=== PATIENT | male | born 1965 | race Caucasian/White ===

== ENCOUNTER 2017-02-24 09:47 | Outpatient (CLI) | payer OTHER ==
[~2017-02-24] VITALS: Ht 180.3 cm; Wt 79.4 kg
[2017-02-24] MEDS ORDERED: NS 1,000 ML IV ONE (10:00)
[2017-02-24] MEDS ORDERED: PROPOFOL 200 MG/20 ML VIAL As Ordered ONE (11:58)
[2017-02-24] MEDS ORDERED: LIDOCAINE 2% INJ 100 MG/5 ML SDV (FOR ANES.) As Ordered ONE (11:58)
--- NOTE | 2017-02-24 12:18 | ROOR ---
Patient Name: Dejan Carrasquillo Procedure Date: 02/24/2017 11:48 AM Date of : 1965 Age: 52 Room: [facility] Gender: Male Note Status: Finalized Procedure: Colonoscopy Indications: Screening for colorectal malignant neoplasm Providers: Guilherme Park MD Referring MD: YAIR HARRIS MD Requesting Provider: Medicines: Monitored Anesthesia Care Complications: No immediate complications. Procedure: Pre-Anesthesia Assessment: - Prior to the procedure, a History and Physical was performed, and patient medications and allergies were reviewed. The patient is competent. The risks and benefits of the procedure and the sedation options and risks were discussed with the patient. All questions were answered and informed consent was obtained. Patient identification and proposed procedure were verified by the physician, the nurse and the mechanical supervisor in the procedure room. Mental Status Examination: alert and oriented. Airway Examination: normal oropharyngeal airway and neck mobility. Respiratory Examination: clear to auscultation. CV Examination: normal. Prophylactic Antibiotics: The patient does not require prophylactic antibiotics. Prior Anticoagulants: The patient has taken no previous anticoagulant or antiplatelet agents. ASA Grade Assessment: I - A normal, healthy patient. After reviewing the risks and benefits, the patient was deemed in satisfactory condition to undergo the procedure. The anesthesia plan was to use monitored anesthesia care (MAC). Immediately prior to administration of medications, the patient was re-assessed for adequacy to receive sedatives. The heart rate, respiratory rate, oxygen saturations, blood pressure, adequacy of pulmonary ventilation, and response to care were monitored throughout the procedure. The physical status of the patient was re-assessed after the procedure. The Colonoscope was introduced through the anus and advanced to the terminal ileum, with identification of the appendiceal orifice and IC valve. The colonoscopy was performed without difficulty. The patient tolerated the procedure well. The quality of the bowel preparation was good. The terminal ileum, ileocecal valve, appendiceal orifice, and rectum were photographed. Scope insertion time was 3 minutes. Scope withdrawal time was 10 minutes. The total duration of the procedure was 13 minutes. Findings: The perianal and digital rectal examinations were normal. The terminal ileum appeared normal. Two hyperplastic polyps were found in the sigmoid colon. The polyps were diminutive in size. These polyps were removed with a cold biopsy forceps. Resection and retrieval were complete. Verification of patient identification for the specimen was done by the physician and nurse using the patient's name, date and medical record number. Estimated blood loss was minimal. A few small-mouthed diverticula were found in the sigmoid colon. There was no evidence of diverticular bleeding. Non-bleeding external and internal hemorrhoids were found during retroflexion. The hemorrhoids were medium-sized. Impression: - The examined portion of the ileum was normal. - Two diminutive polyps in the sigmoid colon, removed with a cold biopsy forceps. Resected and retrieved. - Mild diverticulosis in the sigmoid colon. There was no evidence of diverticular bleeding. - Non-bleeding external and internal hemorrhoids. Recommendation: - Patient has a contact number available for emergencies. The signs and symptoms of potential delayed complications were discussed with the patient. Return to normal activities tomorrow. Written discharge instructions were provided to the patient. - High fiber diet. - Continue present medications. - Await pathology results. - Repeat colonoscopy in 10 years for screening purposes. - Preparation H ointment: Apply externally daily for 5 days. - Return to GI clinic in 10 years. - Return to primary care physician. Guilherme Park MD Guilherme Park MD 02/24/2017 12:18:10 PM This report has been signed electronically. Number of Addenda: 0 Note Initiated On: 02/24/2017 11:48 AM Estimated Blood Loss: Estimated blood loss was minimal.
[2017-02-24 12:30] VITALS: BP 146/77
== END 2017-02-24 12:46 | disposition home or self-care (01) ==
LOC: M OPP 09:47
PROVIDERS: ATTEND Internal Medicine Gastroenterology
DX: Z12.11 Encounter for screening for malignant neoplasm of colon (principal); D12.5 Benign neoplasm of sigmoid colon; K57.30 Diverticulosis of large intestine without perforation or abscess without bleeding; K64.8 Other hemorrhoids; K64.4 Residual hemorrhoidal skin tags; I45.4 Nonspecific intraventricular block; Z80.3 Family history of malignant neoplasm of breast

== ENCOUNTER 2020-07-24 20:31 | Emergency (ER) | payer OTHER ==
[~2020-07-24] VITALS: Ht 180.3 cm; Wt 79.5 kg
--- NOTE | 2020-07-24 21:14 | REPVR ---
PROCEDURE INFORMATION: Exam: XR Left Ribs with PA Chest, 3 Views Exam date and time: 07/24/2020 9:04 PM Age: 55 years old Clinical indication: Chest wall pain; Left; Additional info: Injury TECHNIQUE: Imaging protocol: XR Left ribs 3 views with PA chest. COMPARISON: No relevant prior studies available. FINDINGS: Lungs: Unremarkable. No consolidation. Pleural spaces: Minimal blunting left lateral costophrenic angle.. No pneumothorax. Heart/Mediastinum: There is loss definition of the left heart border. Bones/joints: No definite rib fracture. IMPRESSION: 1. No rib fracture seen. 2. Loss of definition of the left heart border. Differential diagnostic considerations include infiltrate/scarring in the lingula or prominent epicardial pad 3. Minimal blunting left lateral costophrenic angle suggesting small amount of pleural fluid or thickening thickening Electronically signed by: Mamta Girard On 07/24/2020 21:14:46 PM
--- NOTE | 2020-07-24 21:16 | REPVR ---
PROCEDURE INFORMATION: Exam: XR Left Wrist Exam date and time: 07/24/2020 9:04 PM Age: 55 years old Clinical indication: Pain; Wrist; Left; Additional info: Injury TECHNIQUE: Imaging protocol: XR Left wrist. Views: 3 or more views. COMPARISON: No relevant prior studies available. FINDINGS: Bones/joints: There is a fracture of ulnar styloid. There is a comminuted fracture of the distal radial metaphysis. The above described radial fracture appears to extend to the articular surface of the distal radius. There is dorsal angulation of the distal fracture fragment. Subchondral sclerosis and marginal osteophytes border the 1st carpometacarpal joint. Soft tissues: Soft tissue swelling surrounds the wrist. IMPRESSION: Colles fracture of the left wrist Electronically signed by: Mamta Girard On 07/24/2020 21:16:23 PM
--- OUTSIDE RECORDS SUMMARY | 2020-07-24 22:26 | CCD ---
Author Author [facility] Organization [facility] Address Unknown Phone Unavailable Care Team Providers Care Toy Assembler Name Role Phone Jumalon, M Tala DEVELOPING MACHINE TENDER Unavailable Unavailable Jumalon, M Tala DEVELOPING MACHINE TENDER Unavailable Unavailable Jumalon, M Tala DEVELOPING MACHINE TENDER Unavailable Unavailable Jumalon, M Tala DEVELOPING MACHINE TENDER Unavailable Unavailable Jumalon, M Tala DEVELOPING MACHINE TENDER Unavailable Unavailable Jumalon, M Tala DEVELOPING MACHINE TENDER Unavailable Unavailable Jumalon, M Tala DEVELOPING MACHINE TENDER Unavailable Unavailable Jumalon, M Tala DEVELOPING MACHINE TENDER Unavailable Unavailable Jumalon, M Tala DEVELOPING MACHINE TENDER Unavailable Unavailable Jumalon, M Tala DEVELOPING MACHINE TENDER Unavailable Unavailable Jumalon, M Tala DEVELOPING MACHINE TENDER Unavailable Unavailable Jumalon, M Tala DEVELOPING MACHINE TENDER Unavailable Unavailable Jumalon, M Tala DEVELOPING MACHINE TENDER Unavailable Unavailable Jumalon, M Tala DEVELOPING MACHINE TENDER Unavailable Unavailable Jumalon, M Tala DEVELOPING MACHINE TENDER Unavailable Unavailable Jumalon, M Tala DEVELOPING MACHINE TENDER Unavailable Unavailable Jumalon, M Tala DEVELOPING MACHINE TENDER Unavailable Unavailable Jumalon, M Tala DEVELOPING MACHINE TENDER Unavailable Unavailable Jumalon, M Tala DEVELOPING MACHINE TENDER Unavailable Unavailable Jumalon, M Tala DEVELOPING MACHINE TENDER Unavailable Unavailable Jumalon, M Tala DEVELOPING MACHINE TENDER Unavailable Unavailable Jumalon, M Tala DEVELOPING MACHINE TENDER Unavailable Unavailable Jumalon, M Tala DEVELOPING MACHINE TENDER Unavailable Unavailable Jumalon, M Tala DEVELOPING MACHINE TENDER Unavailable Unavailable Jumalon, M Tala DEVELOPING MACHINE TENDER Unavailable Unavailable Jumalon, M Tala DEVELOPING MACHINE TENDER Unavailable Unavailable Jumalon, M Tala DEVELOPING MACHINE TENDER Unavailable Unavailable Jumalon, M Tala DEVELOPING MACHINE TENDER Unavailable Unavailable Ramiro HARRIS MD Unavailable Unavailable Ramiro HARRIS MD Unavailable Unavailable Ramiro HARRIS MD Unavailable Unavailable Ramiro HARRIS MD Unavailable Unavailable Ramiro HARRIS MD Unavailable Unavailable Ramiro HARRIS MD Unavailable Unavailable Ramiro HARRIS MD Unavailable Unavailable Ramiro HARRIS MD Unavailable Unavailable Ramiro HARRIS MD Unavailable Unavailable Ramiro HARRIS MD Unavailable Unavailable Ramiro HARRIS MD Unavailable Unavailable Ramiro HARRIS MD Unavailable Unavailable Ramiro HARRIS MD Unavailable Unavailable Ramiro HARRIS MD Unavailable Unavailable Ramiro HARRIS MD Unavailable Unavailable Ramiro HARRIS MD Unavailable Unavailable Ramiro HARRIS MD Unavailable Unavailable Ramiro HARRIS MD Unavailable Unavailable Ramiro HARRIS MD Unavailable Unavailable Ramiro HARRIS MD Unavailable Unavailable Ramiro HARRIS MD Unavailable Unavailable Ramiro HARRIS MD Unavailable Unavailable Ramiro HARRIS MD Unavailable Unavailable Ramiro HARRIS MD Unavailable Unavailable Ramiro HARRIS MD Unavailable Unavailable Ramiro HARRIS MD Unavailable Unavailable Ramiro HARRIS MD Unavailable Unavailable Ramiro HARRIS MD Unavailable Unavailable Ramiro HARRIS MD Unavailable Unavailable Ramiro HARRIS MD Unavailable Unavailable Ramiro HARRIS MD Unavailable Unavailable Ramiro HARRIS MD Unavailable Unavailable Ramiro HARRIS MD Unavailable Unavailable Ramiro HARRIS MD Unavailable Unavailable Ramiro HARRIS MD Unavailable Unavailable Ramiro HARRIS MD Unavailable Unavailable Ramiro HARRIS MD Unavailable Unavailable Ramiro HARRIS MD Unavailable Unavailable Ramiro HARRIS MD Unavailable Unavailable Ramiro HARRIS MD Unavailable Unavailable Ramiro HARRIS MD Unavailable Unavailable Ramiro HARRIS MD Unavailable Unavailable Ramiro HARRIS MD Unavailable Unavailable Ramiro HARRIS MD Unavailable Unavailable Ramiro HARRIS MD Unavailable Unavailable Ramiro HARRIS MD Unavailable Unavailable Ramiro HARRIS MD Unavailable Unavailable Ramiro HARRIS MD Unavailable Unavailable Ramiro HARRIS MD Unavailable Unavailable Ramiro HARRIS MD Unavailable Unavailable Ramiro HARRIS MD Unavailable Unavailable Ramiro HARRIS MD Unavailable Unavailable Ramiro HARRIS MD Unavailable Unavailable Ramiro HARRIS MD Unavailable Unavailable Ramiro HARRIS MD Unavailable Unavailable Ramiro HARRIS MD Unavailable Unavailable Ramiro HARRIS MD Unavailable Unavailable Ramiro HARRIS MD Unavailable Unavailable Ramiro HARRIS MD Unavailable Unavailable Ramiro HARRIS MD Unavailable Unavailable Ramiro HARRIS MD Unavailable Unavailable Ramiro HARRIS MD Unavailable Unavailable Ramiro HARRIS MD Unavailable Unavailable Ramiro HARRIS MD Unavailable Unavailable Ramiro HARRIS MD Unavailable Unavailable Ramiro HARRIS MD Unavailable Unavailable Ramiro HARRIS MD Unavailable Unavailable Ramiro HARRIS MD Unavailable Unavailable Ramiro HARRIS MD Unavailable Unavailable Ramiro HARRIS MD Unavailable Unavailable Ramiro HARRIS MD Unavailable Unavailable Ramiro HARRIS MD Unavailable Unavailable Ramiro HARRIS MD Unavailable Unavailable Ramiro HARRIS MD Unavailable Unavailable Ramiro HARRIS MD Unavailable Unavailable KIMBERLYRamiro MD Unavailable Unavailable Nash, D Deep PA Unavailable Unavailable Nash, D Deep PA Unavailable Unavailable Nash, D Deep PA Unavailable Unavailable Nash, D Deep PA Unavailable Unavailable Nash, D Deep PA Unavailable Unavailable Nash, D Deep PA Unavailable Unavailable Nash, D Deep PA Unavailable Unavailable Nash, D Deep PA Unavailable Unavailable Nash, D Deep PA Unavailable Unavailable Nash, D Deep PA Unavailable Unavailable Nash, D Deep PA Unavailable Unavailable Nash, D Deep PA Unavailable Unavailable Nash, D Deep PA Unavailable Unavailable Nash, D Deep PA Unavailable Unavailable Nash, D Deep PA Unavailable Unavailable Nash, D Deep PA Unavailable Unavailable Nash, D Deep PA Unavailable Unavailable Nash, D Deep PA Unavailable Unavailable Nash, D Deep PA Unavailable Unavailable Ansh, D Deep PA Unavailable Unavailable Nash, D Deep PA Unavailable Unavailable Nash, D Deep PA Unavailable Unavailable Nash, D Deep PA Unavailable Unavailable Nash, D Deep PA Unavailable Unavailable Nash, D Deep PA Unavailable Unavailable Nash, D Deep PA Unavailable Unavailable Nash, D Deep PA Unavailable Unavailable Nash, D Deep PA Unavailable Unavailable Nash, D Deep PA Unavailable Unavailable Nash, D Deep PA Unavailable Unavailable Nash, D Deep PA Unavailable Unavailable Nash, D Deep PA Unavailable Unavailable Nash, D Deep PA Unavailable Unavailable Nash, D Deep PA Unavailable Unavailable Nash, D Deep PA Unavailable Unavailable Nash, D Deep PA Unavailable Unavailable Nash, D Deep PA Unavailable Unavailable Nash, D Deep PA Unavailable Unavailable Nash, D Deep PA Unavailable Unavailable Nash, D Depe PA Unavailable Unavailable Nash, D Deep PA Unavailable Unavailable Nash, D Deep PA Unavailable Unavailable Nash, D Deep PA Unavailable Unavailable Nash, D Deep PA Unavailable Unavailable Nash, D Deep PA Unavailable Unavailable Nash, D Deep PA Unavailable Unavailable Nash, D Deep PA Unavailable Unavailable Nash, D Deep PA Unavailable Unavailable Nash, D Deep PA Unavailable Unavailable Nash, D Deep PA Unavailable Unavailable Nash, D Deep PA Unavailable Unavailable Nash, D Deep PA Unavailable Unavailable Nash, D Deep PA Unavailable Unavailable Nash, D Deep PA Unavailable Unavailable Nash, D Deep PA Unavailable Unavailable Nash, D Deep PA Unavailable Unavailable Nash, D Deep PA Unavailable Unavailable Nash, D Deep PA Unavailable Unavailable Nash, D Deep PA Unavailable Unavailable Nash, D Deep PA Unavailable Unavailable Nash, D Deep PA Unavailable Unavailable Nash, D Deep PA Unavailable Unavailable Nash, D Deep PA Unavailable Unavailable RAPHAEL, E KATHY WHEELER Unavailable Unavailable RAPHAEL, E KATHY WHEELER Unavailable Unavailable RAPHAEL, E KATHY WHEELER Unavailable Unavailable RAPHAEL, Jennifer CHAVEZ MD Unavailable Unavailable RAPHAEL, Jennifer CHAVEZ MD Unavailable Unavailable RAPHAEL, Jennifer CHAVEZ MD Unavailable Unavailable RAPHAEL, Jennifer CHAVEZ MD Unavailable Unavailable RAPHAEL, Jennifer CHAVEZ MD Unavailable Unavailable RAPHAEL, Jennifer CHAVEZ MD Unavailable Unavailable RAPHAEL, Jennifer CHAVEZ MD Unavailable Unavailable RAPHAEL, Jennifer CHAVEZ MD Unavailable Unavailable RAPHAEL, Jennifer CHAVEZ MD Unavailable Unavailable RAPHAEL, Jennifer CHAVEZ MD Unavailable Unavailable RAPHAEL, Jennifer CHAVEZ MD Unavailable Unavailable RAPHAEL, Jennifer CHAVEZ MD Unavailable Unavailable RAPHAELJennifer GREER MD Unavailable Unavailable RAPHAELJennifer GREER MD Unavailable Unavailable Jennifer LIM MD Unavailable Unavailable RAPHAEL, Jennifer CHAVEZ MD Unavailable Unavailable RAPHAEL, Jennifer CHAVEZ MD Unavailable Unavailable RAPHAEL, Jennifer CHAVEZ MD Unavailable Unavailable RAPHAELJennifer GREER MD Unavailable Unavailable Jennifer LIM MD Unavailable Unavailable Jennifer LIM MD Unavailable Unavailable RAPHAELJennifer GREER MD Unavailable Unavailable RAPHAELJennifer GREER MD Unavailable Unavailable RAPHAELJennifer GREER MD Unavailable Unavailable RAPHAELJennifer GREER MD Unavailable Unavailable RAPHAEL, Jennifer CHAVEZ MD Unavailable Unavailable Jennifer LIM MD Unavailable Unavailable RAPHAEL, Jennifer CHAVEZ MD Unavailable Unavailable RAPHAEL, Jennifer CHAVEZ MD Unavailable Unavailable RAPHAEL, Jennifer CHAVEZ MD Unavailable Unavailable RAPHAEL, Jennifer CHAVEZ MD Unavailable Unavailable RAPHAEL, Jennifer CHAVEZ MD Unavailable Unavailable RAPHAEL, Jennifer CHAVEZ MD Unavailable Unavailable RAPHAEL, Jennifer CHAVEZ MD Unavailable Unavailable RAPHAEL, E KATHY WHEELER Unavailable Unavailable RAPHAEL, Jennifer CHAVEZ MD Unavailable Unavailable RAPHAEL, Jennifer CHAVEZ MD Unavailable Unavailable RAPHAEL, Jennifer CHAVEZ MD Unavailable Unavailable RAPHAEL, Jennifer CHAVEZ MD Unavailable Unavailable RAPHAEL, Jennifer CHAVEZ MD Unavailable Unavailable RAPHAEL, E KATHY WHEELER Unavailable Unavailable RAPHAEL, E KATHY WHEELER Unavailable Unavailable RAPHAEL, E KATHY WHEELER Unavailable Unavailable RAPHAEL, Jennifer CHAVEZ MD Unavailable Unavailable RAPHAEL, Jennifer CHAVEZ MD Unavailable Unavailable RAPHAEL, E KATHY WHEELER Unavailable Unavailable RAPHAEL, E KATHY WHEELER Unavailable Unavailable RAPHAEL, E KATHY WHEELER Unavailable Unavailable RAPHAEL, E KATHY WHEELER Unavailable Unavailable RAPHAEL, E KATHY WHEELER Unavailable Unavailable RAPHAEL, Jennifer CHAVEZ MD Unavailable Unavailable RAPHAEL, E KATHY WHEELER Unavailable Unavailable RAPHAEL, Jennifer CHAVEZ MD Unavailable Unavailable RAPHAEL, Jennifer CHAVEZ MD Unavailable Unavailable RAPHAEL, Jennifer CHAVEZ MD Unavailable Unavailable RAPHAEL, Jennifer CHAVEZ MD Unavailable Unavailable RAPHAEL, Jennifer CHAVEZ MD Unavailable Unavailable RAPHAEL, Jennifer CHAVEZ MD Unavailable Unavailable RAPHAEL, Jennifer CHAVEZ MD Unavailable Unavailable RAPHAEL, Jennifer CHAVEZ MD Unavailable Unavailable RAPHAEL, Jennifer CHAVEZ MD Unavailable Unavailable RAPHAEL, Jennifer CHAVEZ MD Unavailable Unavailable RAPHAEL, Jennifer CHAVEZ MD Unavailable Unavailable RAPHAEL, Jennifer CHAVEZ MD Unavailable Unavailable RAPHAEL, Jennifer CHAVEZ MD Unavailable Unavailable RAPHAEL, Jennifer CHAVEZ MD Unavailable Unavailable RAPHAEL, Jennifer CHAVEZ MD Unavailable Unavailable RAPHAEL, Jennifer CHAVEZ MD Unavailable Unavailable RAPHAEL, Jennifer CHAVEZ MD Unavailable Unavailable RAPHAEL, Jennifer CHAVEZ MD Unavailable Unavailable RAPHAEL, Jennifer CHAVEZ MD Unavailable Unavailable RAPHAEL, Jennifer CHAVEZ MD Unavailable Unavailable RAPHAEL, Jennifer CHAVEZ MD Unavailable Unavailable RAPHAEL, Jennifer CHAVEZ MD Unavailable Unavailable RAPHAEL, Jennifer CHAVEZ MD Unavailable Unavailable RAPHAEL, Jennifer CHAVEZ MD Unavailable Unavailable RAPHAEL, Jennifer CHAVEZ MD Unavailable Unavailable RAPHAEL, Jennifer CHAVEZ MD Unavailable Unavailable RAPHAEL, Jennifer CHAVEZ MD Unavailable Unavailable RAPHAEL, Jennifer CHAVEZ MD Unavailable Unavailable RAPHAEL, Jennifer CHAVEZ MD Unavailable Unavailable RAPHAEL, Jennifer CHAVEZ MD Unavailable Unavailable RAPHAEL, Jennifer CHAVEZ MD Unavailable Unavailable Jennifer LIM MD Unavailable Unavailable Jennifer LIM MD Unavailable Unavailable Jennifer LIM MD Unavailable Unavailable Jennifer LIM MD Unavailable Unavailable Jennifer LIM MD Unavailable Unavailable Jennifer LIM MD Unavailable Unavailable Jennifer LIM MD Unavailable Unavailable Jennifer LIM MD Unavailable Unavailable Jennifer LIM MD Unavailable Unavailable BolAmy morales MD Unavailable Unavailable BolAmy morales MD Unavailable Unavailable BolmAy morales MD Unavailable Unavailable BolAmy morales MD Unavailable Unavailable BolAmy morales MD Unavailable Unavailable BolAmy morales MD Unavailable Unavailable BolAmy morales MD Unavailable Unavailable BolAmy morales MD Unavailable Unavailable BolAmy morales MD Unavailable Unavailable BolAmy morales MD Unavailable Unavailable BolAmy morales MD Unavailable Unavailable BolAmy morales MD Unavailable Unavailable BolAmy morales MD Unavailable Unavailable BolAmy morales MD Unavailable Unavailable BolAmy morales MD Unavailable Unavailable BolAmy morales MD Unavailable Unavailable BolAmy morales MD Unavailable Unavailable BolAmy morales MD Unavailable Unavailable BolAmy morales MD Unavailable Unavailable BolAmy morales MD Unavailable Unavailable BolAmy morales MD Unavailable Unavailable BolAmy morales MD Unavailable Unavailable BolAmy morales MD Unavailable Unavailable BolAmy morales MD Unavailable Unavailable BolAmy morales MD Unavailable Unavailable BolAmy morales MD Unavailable Unavailable BolAmy morales MD Unavailable Unavailable BolAmy morales MD Unavailable Unavailable BolAmy morales MD Unavailable Unavailable BolAmy morales MD Unavailable Unavailable BolAmy morales MD Unavailable Unavailable BolAmy morales MD Unavailable Unavailable BolAmy morales MD Unavailable Unavailable BolAmy morales MD Unavailable Unavailable BolAmy morales MD Unavailable Unavailable BolAmy morales MD Unavailable Unavailable BolAmy morales MD Unavailable Unavailable BolAmy morales MD Unavailable Unavailable BolAmy morales MD Unavailable Unavailable BolAmy morales MD Unavailable Unavailable Bolla, S Ajay MD Unavailable Unavailable Bolla, S Ajay MD Unavailable Unavailable Bolla, S Ajay MD Unavailable Unavailable Bolla, S Ajay MD Unavailable Unavailable Bolla, S Ajay MD Unavailable Unavailable Bolla, S Ajay MD Unavailable Unavailable Bolla, S Ajay MD Unavailable Unavailable Bolla, S Ajay MD Unavailable Unavailable Nash, D Deep PA Unavailable Unavailable Nash, D Deep PA Unavailable Unavailable Nash, D Deep PA Unavailable Unavailable Nash, D Deep PA Unavailable Unavailable Nash, D Deep PA Unavailable Unavailable Nash, D Deep PA Unavailable Unavailable Nash, D Deep PA Unavailable Unavailable Nash, D Deep PA Unavailable Unavailable Nash, D Deep PA Unavailable Unavailable Nash, D Deep PA Unavailable Unavailable Nash, D Deep PA Unavailable Unavailable Nash, D Deep PA Unavailable Unavailable Nash, D Deep PA Unavailable Unavailable Nash, D Deep PA Unavailable Unavailable Nash, D Deep PA Unavailable Unavailable Nash, D Deep PA Unavailable Unavailable Nash, D Deep PA Unavailable Unavailable Nash, D Deep PA Unavailable Unavailable Nash, D Deep PA Unavailable Unavailable Nash, D Deep PA Unavailable Unavailable Nash, D Deep PA Unavailable Unavailable Nash, D Deep PA Unavailable Unavailable Nash, D Deep PA Unavailable Unavailable Nash, D Deep PA Unavailable Unavailable Nash, D Deep PA Unavailable Unavailable Nash, D Deep PA Unavailable Unavailable Nash, D Deep PA Unavailable Unavailable Nash, D Deep PA Unavailable Unavailable Nash, D Deep PA Unavailable Unavailable Nash, D Deep PA Unavailable Unavailable Nash, D Deep PA Unavailable Unavailable Nash, D Deep PA Unavailable Unavailable Nash, D Deep PA Unavailable Unavailable Nash, D Deep PA Unavailable Unavailable Nash, D Deep PA Unavailable Unavailable Nash, D Deep PA Unavailable Unavailable Nash, D Deep PA Unavailable Unavailable Nsah, D Deep PA Unavailable Unavailable Nash, D Deep PA Unavailable Unavailable Nash, D Deep PA Unavailable Unavailable Nash, D Deep PA Unavailable Unavailable Nash, D Deep PA Unavailable Unavailable Nash, D Deep PA Unavailable Unavailable Nash, D Deep PA Unavailable Unavailable Nash, D Deep PA Unavailable Unavailable Nash, D Deep PA Unavailable Unavailable Nash, D Deep PA Unavailable Unavailable Nash, D Deep PA Unavailable Unavailable Nash, D Deep PA Unavailable Unavailable Nash, D Deep PA Unavailable Unavailable Nash, D Deep PA Unavailable Unavailable Nash, D Deep PA Unavailable Unavailable Nash, D Deep PA Unavailable Unavailable Nash, D Deep PA Unavailable Unavailable Nash, D Deep PA Unavailable Unavailable Nash, D Deep PA Unavailable Unavailable Nash, D Deep PA Unavailable Unavailable Nash, D Deep PA Unavailable Unavailable Nash, D Deep PA Unavailable Unavailable Nash, D Deep PA Unavailable Unavailable Nash, D Deep PA Unavailable Unavailable Nash, D Deep PA Unavailable Unavailable Nash, D Deep PA Unavailable Unavailable Re-disclosure Warning The records that you are about to access may contain information from federally-assisted alcohol or drug abuse programs. If such information is present, then the following federally mandated warning applies: This information has been disclosed to you from records protected by federal confidentiality rules (42 CFR part 2). The federal rules prohibit you from making any further disclosure of this information unless further disclosure is expressly permitted by the written consent of the person to whom it pertains or as otherwise permitted by 42 CFR part 2. A general authorization for the release of medical or other information is NOT sufficient for this purpose. The Federal rules restrict any use of the information to criminally investigate or prosecute any alcohol or drug abuse patient.The records that you are about to access may contain highly sensitive health information, the redisclosure of which is protected by Article 27-F of the [facility] Public Health law. If you continue you may have access to information: Regarding HIV / AIDS; Provided by facilities licensed or operated by the [facility] Office of Mental Health; or Provided by the [facility] Office for People With Developmental Disabilities. If such information is present, then the following [facility] mandated warning applies: This information has been disclosed to you from confidential records which are protected by state law. State law prohibits you from making any further disclosure of this information without the specific written consent of the person to whom it pertains, or as otherwise permitted by law. Any unauthorized further disclosure in violation of state law may result in a fine or long term sentence or both. A general authorization for the release of medical or other information is NOT sufficient authorization for further disc losure. Family History Family Member Name Family Member Gender Family Member Status Date o f Status Description Data Source(s) Unknown Unknown Problem [facility] ([facility], ) Encounters Encounter Providers Location Date Indications Data Source(s ) Outpatient Attender: YAIR HARRIS MD [facility] 04/2020 09:30:00 AM EDT [facility] ([facility] Tala Souza Tasia, HAIRSPRING TRUER: [address] [place] [address], Ph. Attender: Tala Dozier DEVELOPING MACHINE TENDER MD - [facility] 02/04/2020 12:00:00 AM EDT ATHE NA ([facility]) Ajay Gold MD: [id number], [facility] [place] [address], Ph. Attender: Ajay Gold MD [facility] 01/06/2020 12:00:00 AM EDT HELDER ([facility]) Ajay Gold MD: [id number], [facility] [place] [address], Ph. Attender: Ajay Gold MD [facility] 01/06/2020 12:00:00 AM EDT HELDER ([facility]) Ajay Gold MD: [address], [place] [address], Ph. Attender: Ajay Gold MD [facility] 01/06/2020 12:00:00 AM EDT HELDER ([facility]) Ajay Godl MD: [address], [facility] [place] [address], Ph. [phone] Attender: Ajay Gold MD [facility] 01/03/2020 12:00:00 AM EDT HELDER ([facility]) Ajay Gold MD: [address], [address], [place] [address], Ph. [phone] Attender: Ajay Gold MD MD - [facility] 01/03/2020 12:00:00 AM EDT HELDER ([facility]) Ajay Gold MD: [address], [address], [place] [address], Ph. [phone] Attender: Ajay Gold MD MD - [facility] 01/03/2020 12:00:00 AM EDT HELDER ([facility]) Ajay Glod MD: [address], [address], [place] [address], Ph. [phone] Attender: Ajay Gold MD MD - [facility] 01/03/2020 12:00:00 AM EDT HELDER ([facility]) Ajay Gold MD: [address], [address], [place] [address], Ph. Attender: Ajay Gold MD MD - [facility] 12/09/2019 12:00:00 AM EDT HELDER ([facility]) Ajay Gold MD: [address], [place] [address], Ph. Attender: Ajay Gold MD MD - [facility] 12/09/2019 12:00:00 AM EDT HELDER ([facility]) Ajay Gold MD: [address], [address], [place] [address], Ph. Attender: Ajay Gold MD MD - [facility] 12/09/2019 12:00:00 AM EDT HELDER ([facility]) Ajay Gold MD: [address], [address], [place] [address], Ph. Attender: Ajay Gold MD MD - [facility] 12/09/2019 12:00:00 AM EDT HELDER ([facility]) Ajay Gold MD: [address], [address], [place] [address], Ph. Attender: Ajay Gold MD MD - [facility] 12/09/2019 12:00:00 AM EDT HELDER ([facility]) Ajay Gold MD: [address], [address], [place] [address], Ph. [phone] Attender: Ajay Gold MD MD - [facility] 12/06/2019 12:00:00 AM EDT HELDER ([facility]) Ajay Gold MD: [address], [address], [place] [address], Ph. [phone] Attender: Ajay Gold MD MD - [facility] 12/06/2019 12:00:00 AM EDT HELDER ([facility]) Ajay Gold MD: [address], [address], [place] [address], Ph. [phone] Attender: Ajay Gold MD MD - [facility] 12/06/2019 12:00:00 AM EDT HELDER ([facility]) Ajay Gold MD: [address], [address], [place] [address], Ph. [phone] Attender: Ajay Gold MD MD - [facility] 12/06/2019 12:00:00 AM EDT HELDER ([facility]) Ajay Gold MD: [address], [address], [place] [address], Ph. [phone] Attender: Ajay ALVES - [facility] 12/06/2019 12:00:00 AM EDT HELDER ([facility]) Ajay Gold MD: [address], [address], [place] [address], Ph. [phone] Attender: Ajay ALVES - [facility] 12/06/2019 12:00:00 AM EDT HELDER ([facility]) Ajay Gold MD: [address], [address], [place] [address], Ph. Attender: Ajay ALVES - [facility] 11/19/2019 12:00:00 AM EDT HELDER (Pain [facility]) Ajay Gold MD: [id number], [address], [place] [address], Ph. Attender: Ajay ALVES - [facility] 11/19/2019 12:00:00 AM EDT HELDER ([facility]) Ajay Gold MD: [id number], [address], [place] [address], Ph. Attender: Ajay ALVES - [facility] 11/19/2019 12:00:00 AM EDT HELDER ([facility]) Ajay Gold MD: [id number], [address], [place] [address], Ph. Attender: Ajay ALVES - [facility] 11/19/2019 12:00:00 AM EDT HELDER ([facility]) Ajay Gold MD: [id number], [address], [place] [address], Ph. Attender: Ajay ALVES - [facility] Office 11/19/2019 12:00:00 AM EDT HELDER ([facility]) Ajay Gold MD: [id number] [facility] [address], [address], [place] [address], Ph. Attender: Ajay Gold MD MD - [facility] 11/19/2019 12:00:00 AM EDT HELDER ([facility]) Ajay Gold MD: [id number], [address], [place] [address], Ph. Attender: Ajay Gold MD MD - [facility] 11/19/2019 12:00:00 AM EDT HELDER ([facility]) Outpatient Attender: KATHY LIM MDReferrer: YAIR Sanches MD 11/05/2019 01:40:54 PM EDT [facility] Recurring Patient Referrer: YAIR HARRIS MD 11/05/2019 0 9:32:33 AM EDT [facility] Outpatient Attender: KATHY LIM MDReferrer: YAIR Sanches MD 10/30/2019 02:26:47 PM EDT [facility] Recurring Patient Referrer: YAIR HARRIS MD 10/30/2019 0 1:47:12 PM EDT [facility] Recurring Patient Referrer: KATHY LIM MD 10/29/2019 10: 01:17 AM EDT [facility] Recurring Patient Referrer: KATHY LIM MD 10/28/2019 09: 12:27 AM EDT [facility] Recurring Patient Referrer: KATHY LIM MD 10/28/2019 09: 12:17 AM EDT [facility] Recurring Patient Referrer: KATHY LIM MD 10/25/2019 11: 31:05 AM EDT [facility] Recurring Patient Referrer: KATHY LIM MD 10/25/2019 11: 26:47 AM EDT [facility] Outpatient Attender: Deep NORMAN [place] Office 06/2019 10:00:00 AM EDT [facility] ([facility] Outpatient Referrer: Deep NORMAN 10/23/2019 10:58:00 AM EDT [facility] Outpatient Referrer: Deep NORMAN 10/23/2019 10:55:00 AM EDT [facility] Outpatient Referrer: Deep NORMAN 10/23/2019 10:55:00 AM EDT [facility] Outpatient Referrer: Deep NORMAN 10/23/2019 10:54:00 AM EDT [facility] Outpatient Referrer: Deep NORMAN 10/23/2019 10:52:00 AM EDT [facility] Outpatient 10/23/2019 10:50:00 AM EDT [facility] Outpatient Attender: Deep NORMAN [place] Office 10:00:00 AM EDT [facility] ([facility] Medications Medication Brand Name Start Date Product Form Dose Route Admi nistrative Instructions Pharmacy Instructions Status Indications Reaction Description Data Source(s) 0.77 % 02/04/2020 12:00:00 AM EDT gel 30 WORK INTO TOENAILS TWO TIMES A DAY WORK INTO TOENAILS TWO TIMES A DAY SOLD: 02/06/2020 [facility] ciclopirox 0.0077 MG/MG Topical Gel Ciclopirox 02/04/2020 12:00:00 AM EDT active [facility] ([facility] 100 mg 10/25/2019 12:00:00 AM EDT capsule 90 TAKE ONE CAPSULE BY MOUTH THREE TIMES A DAY TAKE ONE CAPSULE BY MOUTH THREE TIMES A DAY SOLD: 10/25/2019 [facility] gabapentin 100 MG Oral Capsule Gabapentin 10/25/2019 12:00:00 AM EDT ORAL completed [facility] ([facility] Prednisone 10 MG Oral Tablet Prednisone 10/25/2019 12:00:00 AM EDT ORAL completed [facility] ([facility] 10 mg 10/25/2019 12:00:00 AM EDT tablet 42 TAKE 2 TABLETS BY MOUTH 3 TIMES A DAY FOR 3 DAYS THEN 1 TABLET 3 TIMES A DAY FOR 3 DAYS THE 1 TABLET 2 TIMES A DAY FOR 3 DAYS THEN 1 TABLET ONCE DAILY FOR 3 DAYS THEN 1/2 TABLET ONCE DAILY TAKE 2 TABLETS BY MOUTH 3 TIMES A DAY FOR 3 DAYS THEN 1 TABLET 3 TIMES A DAY FOR 3 DAYS THE 1 TABLET 2 TIMES A DAY FOR 3 DAYS THEN 1 TABLET ONCE DAILY FOR 3 DAYS THEN 1/2 TABLET ONCE DAILY SOLD: 10/25/2019 [facility] Baclofen 10 MG Oral Tablet Baclofen 10/23/2019 12:00:00 AM EDT ORAL completed [facility] ([facility] 20 mg 10/23/2019 12:00:00 AM EDT tablet 5 TAKE ONE TABLET BY MOUTH EVERY DAY FOR 5 DAYS TAKE ONE TABLET BY MOUTH EVERY DAY FOR 5 DAYS SOLD: 10/23/2019 [facility] Prednisone 20 MG Oral Tablet Prednisone 10/23/2019 12:00:00 AM EDT ORAL completed [facility] ([facility] Solu-Medrol Solu-Medrol 10/23/2019 12:00:00 AM EDT completed [facility] ([facility] 10 mg 10/23/2019 12:00:00 AM EDT tablet 14 TAKE ONE TABLET BY MOUTH AT BEDTIME TAKE ONE TABLET BY MOUTH AT BEDTIME SOLD: 10/23/2019 [facility] Injection (SC)/(Im) 10/23/2019 12:00:00 AM EDT completed [facility] ([facility] Medication administered onsite Prednisone 10 MG Oral Tablet prednisone 10 mg tablet prednisone 10 mg tablet completed prednisone 10 MG Oral Tablet HELDER ([facility]) Prednisone 10 MG Oral Tablet prednisone 10 mg tablet prednisone 10 mg tablet completed prednisone 10 MG Oral Tablet HELDER ([facility]) Prednisone 10 MG Oral Tablet prednisone 10 mg tablet prednisone 10 mg tablet completed prednisone 10 MG Oral Tablet HELDER ([facility]) Afluria Quad 8896-2181 60 mcg (15 mcg x 4)/0.5 mL intramuscular susp. [id number] completed influenza A vi ann A/[place] (H1N1) antigen 0.03 MG/ML / influenza A virus A/[place] (H3N2) antigen 0.03 MG/ML / influenza B virus B/ antigen 0.03 MG/ML / influenza B virus B/[facility] antigen 0.03 MG/ML Injectable Suspension [Afluria Quadrivalent ] HELDER ([facility]) gabapentin 100 MG Oral Capsule gabapentin 100 mg [facility] gabapentin 100 mg capsule completed gabapentin 100 MG Oral Capsule HELDER ([facility]) gabapentin 100 MG Oral Capsule gabapentin 100 mg [facility] gabapentin 100 mg capsule completed gabapentin 100 MG Oral Capsule HELDER ([facility]) ciclopirox 0.0077 MG/MG Topical Gel ciclopirox 0.77 % topical gel ciclopirox 0.77 % topical gel completed ciclopirox 0.0077 MG/MG Topical Gel HELDER ([facility]) Baclofen 10 MG Oral Tablet baclofen 10 mg tablet 1 tab daily baclofen 10 mg tablet 1 tab daily completed keli lofen 10 MG Oral Tablet HELDER ([facility]) Prednisone 20 MG Oral Tablet prednisone 20 mg tablet prednisone 20 mg tablet completed prednisone 20 MG Oral Tablet HELDER ([facility]) Prednisone 20 MG Oral Tablet prednisone 20 mg tablet prednisone 20 mg tablet completed prednisone 20 MG Oral Tablet HELDER ([facility]) Afluria Quad 60 mcg (15 mcg x 4)/0.5 mL intramuscular susp. [id number] completed influenza A vi ann A/ (H1N1) antigen 0.03 MG/ML / influenza A virus A/[place] (H3N2) antigen 0.03 MG/ML / influenza B virus B/[place] antigen 0.03 MG/ML / influenza B virus B/[facility] antigen 0.03 MG/ML Injectable Suspension [Afluria Quadrivalent ] HELDER ([facility]) ciclopirox 0.0077 MG/MG Topical Gel ciclopirox 0.77 % topical gel ciclopirox 0.77 % topical gel completed ciclopirox 0.0077 MG/MG Topical Gel HELDER ([facility]) ciclopirox 0.0077 MG/MG Topical Gel ciclopirox 0.77 % topical gel ciclopirox 0.77 % topical gel completed ciclopirox 0.0077 MG/MG Topical Gel HELDER ([facility]) Afluria Quad 60 mcg (15 mcg x 4)/0.5 mL intramuscular susp. [id number] completed influenza A vi ann A/ (H1N1) antigen 0.03 MG/ML / influenza A virus A/ (H3N2) antigen 0.03 MG/ML / influenza B virus B/[place] antigen 0.03 MG/ML / influenza B virus B/[facility] antigen 0.03 MG/ML Injectable Suspension [Afluria Quadrivalent ] HELDER ([facility]) gabapentin 100 MG Oral Capsule gabapentin 100 mg capsu le gabapentin 100 mg capsule completed gabapentin 100 MG Oral Capsule HELDER ([facility]) Prednisone 20 MG Oral Tablet prednisone 20 mg tablet prednisone 20 mg tablet completed prednisone 20 MG Oral Tablet HELDER ([facility]) Afluria Quad 60 mcg (15 mcg x 4)/0.5 mL intramuscular susp. [id number] completed influenza A vi ann A/ (H1N1) antigen 0.03 MG/ML / influenza A virus A/ (H3N2) antigen 0.03 MG/ML / influenza B virus B/ antigen 0.03 MG/ML / influenza B virus B/[facility] antigen 0.03 MG/ML Injectable Suspension [Afluria Quadrivalent ] HELDER ([facility]) Baclofen 10 MG Oral Tablet baclofen 10 mg tablet 1 tab daily baclofen 10 mg tablet 1 tab daily completed keli lofen 10 MG Oral Tablet HELDER ([facility]) gabapentin 100 MG Oral Capsule gabapentin 100 mg capsu le gabapentin 100 mg capsule completed gabapentin 100 MG Oral Capsule HELDER ([facility]) Baclofen 10 MG Oral Tablet baclofen 10 mg tablet 1 tab daily baclofen 10 mg tablet 1 tab daily completed keli lofen 10 MG Oral Tablet HELDER ([facility]) ciclopirox 0.0077 MG/MG Topical Gel ciclopirox 0.77 % topical gel ciclopirox 0.77 % topical gel completed ciclopirox 0.0077 MG/MG Topical Gel HELDER ([facility]) gabapentin 100 MG Oral Capsule gabapentin 100 mg capsu le gabapentin 100 mg capsule completed gabapentin 100 MG Oral Capsule HELDER ([facility]) Prednisone 20 MG Oral Tablet prednisone 20 mg tablet prednisone 20 mg tablet completed prednisone 20 MG Oral Tablet HELDER ([facility]) ciclopirox 0.0077 MG/MG Topical Gel ciclopirox 0.77 % topical gel ciclopirox 0.77 % topical gel completed ciclopirox 0.0077 MG/MG Topical Gel HELDER ([facility]) Prednisone 20 MG Oral Tablet prednisone 20 mg tablet prednisone 20 mg tablet completed prednisone 20 MG Oral Tablet HELDER ([facility]) Afluria Quad 60 mcg (15 mcg x 4)/0.5 mL intramuscular susp. [id number] completed influenza A vi ann A/ (H1N1) antigen 0.03 MG/ML / influenza A virus A/ (H3N2) antigen 0.03 MG/ML / influenza B virus B/ antigen 0.03 MG/ML / influenza B virus B/[facility] antigen 0.03 MG/ML Injectable Suspension [Afluria Quadrivalent ] HELDER ([facility]) Prednisone 10 MG Oral Tablet prednisone 10 mg tablet prednisone 10 mg tablet completed prednisone 10 MG Oral Tablet HELDER ([facility]) Baclofen 10 MG Oral Tablet baclofen 10 mg tablet 1 tab daily baclofen 10 mg tablet 1 tab daily completed keli lofen 10 MG Oral Tablet HELDER ([facility]) Prednisone 10 MG Oral Tablet prednisone 10 mg tablet prednisone 10 mg tablet completed prednisone 10 MG Oral Tablet HELDER ([facility]) gabapentin 100 MG Oral Capsule gabapentin 100 mg capsu le gabapentin 100 mg capsule completed gabapentin 100 MG Oral Capsule HELDER ([facility]) Prednisone 10 MG Oral Tablet prednisone 10 mg tablet prednisone 10 mg tablet completed prednisone 10 MG Oral Tablet HELDER ([facility]) ciclopirox 0.0077 MG/MG Topical Gel ciclopirox 0.77 % topical gel ciclopirox 0.77 % topical gel completed ciclopirox 0.0077 MG/MG Topical Gel HELDER ([facility]) Afluria Quad 60 mcg (15 mcg x 4)/0.5 mL intramuscular susp. [id number] completed influenza A vi ann A/ (H1N1) antigen 0.03 MG/ML / influenza A virus A/ (H3N2) antigen 0.03 MG/ML / influenza B virus B/[place] antigen 0.03 MG/ML / influenza B virus B/[facility] antigen 0.03 MG/ML Injectable Suspension [Afluria Quadrivalent ] HELDER ([facility]) gabapentin 100 MG Oral Capsule gabapentin 100 mg capsu le gabapentin 100 mg capsule completed gabapentin 100 MG Oral Capsule HELDER ([facility]) ciclopirox 0.0077 MG/MG Topical Gel ciclopirox 0.77 % topical gel ciclopirox 0.77 % topical gel completed ciclopirox 0.0077 MG/MG Topical Gel HELDER ([facility]) Afluria Quad [id number] 60 mcg (15 mcg x 4)/0.5 mL intramuscular susp. [id number] completed influenza A vi ann A (H1N1) antigen 0.03 MG/ML / influenza A virus A/ (H3N2) antigen 0.03 MG/ML / influenza B virus B/ antigen 0.03 MG/ML / influenza B virus B/[facility] antigen 0.03 MG/ML Injectable Suspension [Afluria Quadrivalent ] HELDER ([facility]) Prednisone 20 MG Oral Tablet prednisone 20 mg tablet prednisone 20 mg tablet completed prednisone 20 MG Oral Tablet HELDER ([facility]) Prednisone 20 MG Oral Tablet prednisone 20 mg tablet prednisone 20 mg tablet completed prednisone 20 MG Oral Tablet HELDER ([facility]) Baclofen 10 MG Oral Tablet baclofen 10 mg tablet 1 tab daily baclofen 10 mg tablet 1 tab daily completed keli lofen 10 MG Oral Tablet HELDER ([facility]) Prednisone 10 MG Oral Tablet prednisone 10 mg tablet prednisone 10 mg tablet completed prednisone 10 MG Oral Tablet HELDER ([facility]) Baclofen 10 MG Oral Tablet baclofen 10 mg tablet 1 tab daily baclofen 10 mg tablet 1 tab daily completed keli lofen 10 MG Oral Tablet HELDER ([facility]) Baclofen 10 MG Oral Tablet baclofen 10 mg tablet 1 tab daily baclofen 10 mg tablet 1 tab daily completed keli lofen 10 MG Oral Tablet HELDER ([facility]) Insurance Providers Payer name Policy type / Coverage type Policy ID Covered alliance party ID Covered alliance party's relationship to nolasco Policy [place] Plan Information UMR [facility] [id number] [id number] [employer] [id number] WI2 [id number] UMR F [id number] SPOUSE [id number] UMR F [id number] SPOUSE [id number] UMR F [id number] SPOUSE [id number] [facility] Comm Plan Medicare F SELF [id number] UMR O [id number] S O UNAVAILABLE UNAVAILA BLE Lifetime Benefits [employer] (H[employer]) [id number] Family Dependent [id number] Lifetime Benefits [employer] (HMO) [id number] Family Dependent [id number] [employer] [id number] SP [id number] Surgeries/Procedures Procedure Description Date Indications Data Source(s) Injection (SC)/(Im) 10/23/2019 12:00:00 AM EDT [facility] ([facility] Results ID Date Data Source [id number] 06/17/2020 12:00:00 AM EST [place] Name Value Range Interpretation Code Description Data Latisha rce(s) Supporting Document(s) SARS-CoV2 Rapid Antigen [place] This lab was ordered by [facility] and reported by [facility]. ID Date Data Source [id number] 02/04/2020 09:51:00 AM EDT MEDENT ([facility] Name Value Range Interpretation Code Description Data Latisha rce(s) Supporting Document(s) Hepatitis A virus IgM Ab [Presence] in Serum or Plasma by Immunoassay Laboratory test result [facility] ([facility] Hepatitis B virus surface Ag [Presence] in Serum or Pl asma by Immunoassay Laboratory test result [facility] ([facility] Hepatitis C virus Ab Signal/Cutoff in Serum or Plasma by Immunoassay Laboratory test result 0.0-0.9 [facility] ([facility] <content>Negative: < 0.8</content><b r/><content>Indeterminate: 0.8 - 0.9</content>
<content>Positive: > 0.9</content>
<content>The CDC recommends that a positive HCV antibody result</content>
<content>be followed up with a HCV Nucleic Acid Amplification</content>
<content>test (333145).</content>
<content></content> Hep B Core Ab, IgM Laboratory test result [facility] ID Date Data Source [id number] 01/28/2020 09:07:00 AM EDT MEDBLACK ([facility] Name Value Range Interpretation Code Description Data Latisha rce(s) Supporting Document(s) Chol 185 mg/dL 0-200 [facility] ([facility] CHRONIC KIDNEY DISEASE STAGING PER NKF: MALE GFR INTERPRETATION: 20-49 YRS: >60 mL/min Normal 50-59 YRS: >56 mL/min Normal 60-69 YRS: >49 mL/min Normal 70-79 YRS: >42 mL/min Normal 80 and above >35 mL/min Normal FEMALE GRF INTERPRETATION: 20-39 YRS: >60 mL/min Normal 40-49 YRS: >58 mL/min Normal 50-59 YRS: >51 mL/min Normal 60-69 YRS: >45 mL/min Normal 70-79 YRS: >39 mL/min Normal 80 and above >32 mL/min NormalCLASSIFICATION CHOLESTEROL FOR ADULTS CHILDREN/ADOLESCENTS* DESIRABLE: <200 MG/DL <170 MG/DL BORDER-LINE HIGH RISK: 200-239 MG/DL 170-199 MG/DL HIGH RISK: >240 MG/DL >200 MG/DL CLASS. FOR PRIMARY LDL CHOL PREVENTION: LDL CHOL-CHILD/ADOLESCENTS* DESIRABLE: <130 MG/DL <110 MG/DL BORDERLINE-HIGH RISK: 130- 159 MG/DL 110-129 MG/DL HIGH RISK: >160 MG/DL >130 MG/DL *CHILDREN AND ADOLESCENTS REPRESENTS INDIVIDUALA AGED 2-19 YEARS EXCLUSIVE. Trig 38 mg/dL 35-200 [facility] ([facility] CHRONIC KIDNEY DISEASE STAGING PER NKF: MALE GFR INTERPRETATION: 20-49 YRS: >60 mL/min Normal 50-59 YRS: >56 mL/min Normal 60-69 YRS: >49 mL/min Normal 70-79 YRS: >42 mL/min Normal 80 and above >35 mL/min Normal FEMALE GRF INTERPRETATION: 20-39 YRS: >60 mL/min Normal 40-49 YRS: >58 mL/min Normal 50-59 YRS: >51 mL/min Normal 60-69 YRS: >45 mL/min Normal 70-79 YRS: >39 mL/min Normal 80 and above >32 mL/min NormalCLASSIFICATION CHOLESTEROL FOR ADULTS CHILDREN/ADOLESCENTS* DESIRABLE: <200 MG/DL <170 MG/DL BORDER-LINE HIGH RISK: 200-239 MG/DL 170-199 MG/DL HIGH RISK: >240 MG/DL >200 MG/DL CLASS. FOR PRIMARY LDL CHOL PREVENTION: LDL CHOL-CHILD/ADOLESCENTS* DESIRABLE: <130 MG/DL <110 MG/DL BORDERLINE-HIGH RISK: 130- 159 MG/DL 110-129 MG/DL HIGH RISK: >160 MG/DL >130 MG/DL *CHILDREN AND ADOLESCENTS REPRESENTS INDIVIDUALA AGED 2-19 YEARS EXCLUSIVE. LDL_C 128 Calc 75-129 [facility] CHRONIC KIDNEY DISEASE STAGING PER NKF: MALE GFR INTERPRETATION: 20-49 YRS: >60 mL/min Normal 50-59 YRS: >56 mL/min Normal 60-69 YRS: >49 mL/min Normal 70-79 YRS: >42 mL/min Normal 80 and above >35 mL/min Normal FEMALE GRF INTERPRETATION: 20-39 YRS: >60 mL/min Normal 40-49 YRS: >58 mL/min Normal 50-59 YRS: >51 mL/min Normal 60-69 YRS: >45 mL/min Normal 70-79 YRS: >39 mL/min Normal 80 and above >32 mL/min NormalCLASSIFICATION CHOLESTEROL FOR ADULTS CHILDREN/ADOLESCENTS* DESIRABLE: <200 MG/DL <170 MG/DL BORDER-LINE HIGH RISK: 200-239 MG/DL 170-199 MG/DL HIGH RISK: >240 MG/DL >200 MG/DL CLASS. FOR PRIMARY LDL CHOL PREVENTION: LDL CHOL-CHILD/ADOLESCENTS* DESIRABLE: <130 MG/DL <110 MG/DL BORDERLINE-HIGH RISK: 130- 159 MG/DL 110-129 MG/DL HIGH RISK: >160 MG/DL >130 MG/DL *CHILDREN AND ADOLESCENTS REPRESENTS INDIVIDUALA AGED 2-19 YEARS EXCLUSIVE. Cholesterol in HDL [Mass/volume] in Serum or Plasma 49 mg/dL 35-55 [facility] ([facility] CHRONIC KIDNEY DISEASE STAGING PER NKF: MALE GFR INTERPRETATION: 20-49 YRS: >60 mL/min Normal 50-59 YRS: >56 mL/min Normal 60-69 YRS: >49 mL/min Normal 70-79 YRS: >42 mL/min Normal 80 and above >35 mL/min Normal FEMALE GRF INTERPRETATION: 20-39 YRS: >60 mL/min Normal 40-49 YRS: >58 mL/min Normal 50-59 YRS: >51 mL/min Normal 60-69 YRS: >45 mL/min Normal 70-79 YRS: >39 mL/min Normal 80 and above >32 mL/min NormalCLASSIFICATION CHOLESTEROL FOR ADULTS CHILDREN/ADOLESCENTS* DESIRABLE: <200 MG/DL <170 MG/DL BORDER-LINE HIGH RISK: 200-239 MG/DL 170-199 MG/DL HIGH RISK: >240 MG/DL >200 MG/DL CLASS. FOR PRIMARY LDL CHOL PREVENTION: LDL CHOL-CHILD/ADOLESCENTS* DESIRABLE: <130 MG/DL <110 MG/DL BORDERLINE-HIGH RISK: 130- 159 MG/DL 110-129 MG/DL HIGH RISK: >160 MG/DL >130 MG/DL *CHILDREN AND ADOLESCENTS REPRESENTS INDIVIDUALA AGED 2-19 YEARS EXCLUSIVE. Cho/HDL Ratio 3.7 CALC [facility] ([facility] CHRONIC KIDNEY DISEASE STAGING PER NKF: MALE GFR INTERPRETATION: 20-49 YRS: >60 mL/min Normal 50-59 YRS: >56 mL/min Normal 60-69 YRS: >49 mL/min Normal 70-79 YRS: >42 mL/min Normal 80 and above >35 mL/min Normal FEMALE GRF INTERPRETATION: 20-39 YRS: >60 mL/min Normal 40-49 YRS: >58 mL/min Normal 50-59 YRS: >51 mL/min Normal 60-69 YRS: >45 mL/min Normal 70-79 YRS: >39 mL/min Normal 80 and above >32 mL/min NormalCLASSIFICATION CHOLESTEROL FOR ADULTS CHILDREN/ADOLESCENTS* DESIRABLE: <200 MG/DL <170 MG/DL BORDER-LINE HIGH RISK: 200-239 MG/DL 170-199 MG/DL HIGH RISK: >240 MG/DL >200 MG/DL CLASS. FOR PRIMARY LDL CHOL PREVENTION: LDL CHOL-CHILD/ADOLESCENTS* DESIRABLE: <130 MG/DL <110 MG/DL BORDERLINE-HIGH RISK: 130- 159 MG/DL 110-129 MG/DL HIGH RISK: >160 MG/DL >130 MG/DL *CHILDREN AND ADOLESCENTS REPRESENTS INDIVIDUALA AGED 2-19 YEARS EXCLUSIVE. ID Date Data Source [id number] 01/28/2020 09:07:00 AM EDT [facility] ([facility] Name Value Range Interpretation Code Description Data Latisha rce(s) Supporting Document(s) Glu 86 mg/dL 70-110 [facility] ([facility] CHRONIC KIDNEY DISEASE STAGING PER NKF: MALE GFR INTERPRETATION: 20-49 YRS: >60 mL/min Normal 50-59 YRS: >56 mL/min Normal 60-69 YRS: >49 mL/min Normal 70-79 YRS: >42 mL/min Normal 80 and above >35 mL/min Normal FEMALE GRF INTERPRETATION: 20-39 YRS: >60 mL/min Normal 40-49 YRS: >58 mL/min Normal 50-59 YRS: >51 mL/min Normal 60-69 YRS: >45 mL/min Normal 70-79 YRS: >39 mL/min Normal 80 and above >32 mL/min NormalCLASSIFICATION CHOLESTEROL FOR ADULTS CHILDREN/ADOLESCENTS* DESIRABLE: <200 MG/DL <170 MG/DL BORDER-LINE HIGH RISK: 200-239 MG/DL 170-199 MG/DL HIGH RISK: >240 MG/DL >200 MG/DL CLASS. FOR PRIMARY LDL CHOL PREVENTION: LDL CHOL-CHILD/ADOLESCENTS* DESIRABLE: <130 MG/DL <110 MG/DL BORDERLINE-HIGH RISK: 130- 159 MG/DL 110-129 MG/DL HIGH RISK: >160 MG/DL >130 MG/DL *CHILDREN AND ADOLESCENTS REPRESENTS INDIVIDUALA AGED 2-19 YEARS EXCLUSIVE. BUN 18 mg/dL 8-23 [facility] ([facility] CHRONIC KIDNEY DISEASE STAGING PER NKF: MALE GFR INTERPRETATION: 20-49 YRS: >60 mL/min Normal 50-59 YRS: >56 mL/min Normal 60-69 YRS: >49 mL/min Normal 70-79 YRS: >42 mL/min Normal 80 and above >35 mL/min Normal FEMALE GRF INTERPRETATION: 20-39 YRS: >60 mL/min Normal 40-49 YRS: >58 mL/min Normal 50-59 YRS: >51 mL/min Normal 60-69 YRS: >45 mL/min Normal 70-79 YRS: >39 mL/min Normal 80 and above >32 mL/min NormalCLASSIFICATION CHOLESTEROL FOR ADULTS CHILDREN/ADOLESCENTS* DESIRABLE: <200 MG/DL <170 MG/DL BORDER-LINE HIGH RISK: 200-239 MG/DL 170-199 MG/DL HIGH RISK: >240 MG/DL >200 MG/DL CLASS. FOR PRIMARY LDL CHOL PREVENTION: LDL CHOL-CHILD/ADOLESCENTS* DESIRABLE: <130 MG/DL <110 MG/DL BORDERLINE-HIGH RISK: 130- 159 MG/DL 110-129 MG/DL HIGH RISK: >160 MG/DL >130 MG/DL *CHILDREN AND ADOLESCENTS REPRESENTS INDIVIDUALA AGED 2-19 YEARS EXCLUSIVE. Creat 0.9 mg/dL 0.7-1.2 MEDENT ([facility] CHRONIC KIDNEY DISEASE STAGING PER NKF: MALE GFR INTERPRETATION: 20-49 YRS: >60 mL/min Normal 50-59 YRS: >56 mL/min Normal 60-69 YRS: >49 mL/min Normal 70-79 YRS: >42 mL/min Normal 80 and above >35 mL/min Normal FEMALE GRF INTERPRETATION: 20-39 YRS: >60 mL/min Normal 40-49 YRS: >58 mL/min Normal 50-59 YRS: >51 mL/min Normal 60-69 YRS: >45 mL/min Normal 70-79 YRS: >39 mL/min Normal 80 and above >32 mL/min NormalCLASSIFICATION CHOLESTEROL FOR ADULTS CHILDREN/ADOLESCENTS* DESIRABLE: <200 MG/DL <170 MG/DL BORDER-LINE HIGH RISK: 200-239 MG/DL 170-199 MG/DL HIGH RISK: >240 MG/DL >200 MG/DL CLASS. FOR PRIMARY LDL CHOL PREVENTION: LDL CHOL-CHILD/ADOLESCENTS* DESIRABLE: <130 MG/DL <110 MG/DL BORDERLINE-HIGH RISK: 130- 159 MG/DL 110-129 MG/DL HIGH RISK: >160 MG/DL >130 MG/DL *CHILDREN AND ADOLESCENTS REPRESENTS INDIVIDUALA AGED 2-19 YEARS EXCLUSIVE. BUN/Creatinine Ratio 20.4 CALC MEDENT ([facility] CHRONIC KIDNEY DISEASE STAGING PER NKF: MALE GFR INTERPRETATION: 20-49 YRS: >60 mL/min Normal 50-59 YRS: >56 mL/min Normal 60-69 YRS: >49 mL/min Normal 70-79 YRS: >42 mL/min Normal 80 and above >35 mL/min Normal FEMALE GRF INTERPRETATION: 20-39 YRS: >60 mL/min Normal 40-49 YRS: >58 mL/min Normal 50-59 YRS: >51 mL/min Normal 60-69 YRS: >45 mL/min Normal 70-79 YRS: >39 mL/min Normal 80 and above >32 mL/min NormalCLASSIFICATION CHOLESTEROL FOR ADULTS CHILDREN/ADOLESCENTS* DESIRABLE: <200 MG/DL <170 MG/DL BORDER-LINE HIGH RISK: 200-239 MG/DL 170-199 MG/DL HIGH RISK: >240 MG/DL >200 MG/DL CLASS. FOR PRIMARY LDL CHOL PREVENTION: LDL CHOL-CHILD/ADOLESCENTS* DESIRABLE: <130 MG/DL <110 MG/DL BORDERLINE-HIGH RISK: 130- 159 MG/DL 110-129 MG/DL HIGH RISK: >160 MG/DL >130 MG/DL *CHILDREN AND ADOLESCENTS REPRESENTS INDIVIDUALA AGED 2-19 YEARS EXCLUSIVE. Na 139 mmol/L 136-145 [facility] ([facility] CHRONIC KIDNEY DISEASE STAGING PER NKF: MALE GFR INTERPRETATION: 20-49 YRS: >60 mL/min Normal 50-59 YRS: >56 mL/min Normal 60-69 YRS: >49 mL/min Normal 70-79 YRS: >42 mL/min Normal 80 and above >35 mL/min Normal FEMALE GRF INTERPRETATION: 20-39 YRS: >60 mL/min Normal 40-49 YRS: >58 mL/min Normal 50-59 YRS: >51 mL/min Normal 60-69 YRS: >45 mL/min Normal 70-79 YRS: >39 mL/min Normal 80 and above >32 mL/min NormalCLASSIFICATION CHOLESTEROL FOR ADULTS CHILDREN/ADOLESCENTS* DESIRABLE: <200 MG/DL <170 MG/DL BORDER-LINE HIGH RISK: 200-239 MG/DL 170-199 MG/DL HIGH RISK: >240 MG/DL >200 MG/DL CLASS. FOR PRIMARY LDL CHOL PREVENTION: LDL CHOL-CHILD/ADOLESCENTS* DESIRABLE: <130 MG/DL <110 MG/DL BORDERLINE-HIGH RISK: 130- 159 MG/DL 110-129 MG/DL HIGH RISK: >160 MG/DL >130 MG/DL *CHILDREN AND ADOLESCENTS REPRESENTS INDIVIDUALA AGED 2-19 YEARS EXCLUSIVE. K 4.5 mmol/L 3.5-5.1 [facility] ([facility] CHRONIC KIDNEY DISEASE STAGING PER NKF: MALE GFR INTERPRETATION: 20-49 YRS: >60 mL/min Normal 50-59 YRS: >56 mL/min Normal 60-69 YRS: >49 mL/min Normal 70-79 YRS: >42 mL/min Normal 80 and above >35 mL/min Normal FEMALE GRF INTERPRETATION: 20-39 YRS: >60 mL/min Normal 40-49 YRS: >58 mL/min Normal 50-59 YRS: >51 mL/min Normal 60-69 YRS: >45 mL/min Normal 70-79 YRS: >39 mL/min Normal 80 and above >32 mL/min NormalCLASSIFICATION CHOLESTEROL FOR ADULTS CHILDREN/ADOLESCENTS* DESIRABLE: <200 MG/DL <170 MG/DL BORDER-LINE HIGH RISK: 200-239 MG/DL 170-199 MG/DL HIGH RISK: >240 MG/DL >200 MG/DL CLASS. FOR PRIMARY LDL CHOL PREVENTION: LDL CHOL-CHILD/ADOLESCENTS* DESIRABLE: <130 MG/DL <110 MG/DL BORDERLINE-HIGH RISK: 130- 159 MG/DL 110-129 MG/DL HIGH RISK: >160 MG/DL >130 MG/DL *CHILDREN AND ADOLESCENTS REPRESENTS INDIVIDUALA AGED 2-19 YEARS EXCLUSIVE. CL 105.8 mmol/L 98.0-107.0 [facility] ([facility] CHRONIC KIDNEY DISEASE STAGING PER NKF: MALE GFR INTERPRETATION: 20-49 YRS: >60 mL/min Normal 50-59 YRS: >56 mL/min Normal 60-69 YRS: >49 mL/min Normal 70-79 YRS: >42 mL/min Normal 80 and above >35 mL/min Normal FEMALE GRF INTERPRETATION: 20-39 YRS: >60 mL/min Normal 40-49 YRS: >58 mL/min Normal 50-59 YRS: >51 mL/min Normal 60-69 YRS: >45 mL/min Normal 70-79 YRS: >39 mL/min Normal 80 and above >32 mL/min NormalCLASSIFICATION CHOLESTEROL FOR ADULTS CHILDREN/ADOLESCENTS* DESIRABLE: <200 MG/DL <170 MG/DL BORDER-LINE HIGH RISK: 200-239 MG/DL 170-199 MG/DL HIGH RISK: >240 MG/DL >200 MG/DL CLASS. FOR PRIMARY LDL CHOL PREVENTION: LDL CHOL-CHILD/ADOLESCENTS* DESIRABLE: <130 MG/DL <110 MG/DL BORDERLINE-HIGH RISK: 130- 159 MG/DL 110-129 MG/DL HIGH RISK: >160 MG/DL >130 MG/DL *CHILDREN AND ADOLESCENTS REPRESENTS INDIVIDUALA AGED 2-19 YEARS EXCLUSIVE. Co2 23.1 mmol/L 22.0-29.0 MED[facility] ([facility] CHRONIC KIDNEY DISEASE STAGING PER NKF: MALE GFR INTERPRETATION: 20-49 YRS: >60 mL/min Normal 50-59 YRS: >56 mL/min Normal 60-69 YRS: >49 mL/min Normal 70-79 YRS: >42 mL/min Normal 80 and above >35 mL/min Normal FEMALE GRF INTERPRETATION: 20-39 YRS: >60 mL/min Normal 40-49 YRS: >58 mL/min Normal 50-59 YRS: >51 mL/min Normal 60-69 YRS: >45 mL/min Normal 70-79 YRS: >39 mL/min Normal 80 and above >32 mL/min NormalCLASSIFICATION CHOLESTEROL FOR ADULTS CHILDREN/ADOLESCENTS* DESIRABLE: <200 MG/DL <170 MG/DL BORDER-LINE HIGH RISK: 200-239 MG/DL 170-199 MG/DL HIGH RISK: >240 MG/DL >200 MG/DL CLASS. FOR PRIMARY LDL CHOL PREVENTION: LDL CHOL-CHILD/ADOLESCENTS* DESIRABLE: <130 MG/DL <110 MG/DL BORDERLINE-HIGH RISK: 130- 159 MG/DL 110-129 MG/DL HIGH RISK: >160 MG/DL >130 MG/DL *CHILDREN AND ADOLESCENTS REPRESENTS INDIVIDUALA AGED 2-19 YEARS EXCLUSIVE. Alb 4.3 g/dL 3.5-5.2 [facility] ([facility] CHRONIC KIDNEY DISEASE STAGING PER NKF: MALE GFR INTERPRETATION: 20-49 YRS: >60 mL/min Normal 50-59 YRS: >56 mL/min Normal 60-69 YRS: >49 mL/min Normal 70-79 YRS: >42 mL/min Normal 80 and above >35 mL/min Normal FEMALE GRF INTERPRETATION: 20-39 YRS: >60 mL/min Normal 40-49 YRS: >58 mL/min Normal 50-59 YRS: >51 mL/min Normal 60-69 YRS: >45 mL/min Normal 70-79 YRS: >39 mL/min Normal 80 and above >32 mL/min NormalCLASSIFICATION CHOLESTEROL FOR ADULTS CHILDREN/ADOLESCENTS* DESIRABLE: <200 MG/DL <170 MG/DL BORDER-LINE HIGH RISK: 200-239 MG/DL 170-199 MG/DL HIGH RISK: >240 MG/DL >200 MG/DL CLASS. FOR PRIMARY LDL CHOL PREVENTION: LDL CHOL-CHILD/ADOLESCENTS* DESIRABLE: <130 MG/DL <110 MG/DL BORDERLINE-HIGH RISK: 130- 159 MG/DL 110-129 MG/DL HIGH RISK: >160 MG/DL >130 MG/DL *CHILDREN AND ADOLESCENTS REPRESENTS INDIVIDUALA AGED 2-19 YEARS EXCLUSIVE. CA 8.8 mg/dL 8.6-10.2 [facility] CHRONIC KIDNEY DISEASE STAGING PER NKF: MALE GFR INTERPRETATION: 20-49 YRS: >60 mL/min Normal 50-59 YRS: >56 mL/min Normal 60-69 YRS: >49 mL/min Normal 70-79 YRS: >42 mL/min Normal 80 and above >35 mL/min Normal FEMALE GRF INTERPRETATION: 20-39 YRS: >60 mL/min Normal 40-49 YRS: >58 mL/min Normal 50-59 YRS: >51 mL/min Normal 60-69 YRS: >45 mL/min Normal 70-79 YRS: >39 mL/min Normal 80 and above >32 mL/min NormalCLASSIFICATION CHOLESTEROL FOR ADULTS CHILDREN/ADOLESCENTS* DESIRABLE: <200 MG/DL <170 MG/DL BORDER-LINE HIGH RISK: 200-239 MG/DL 170-199 MG/DL HIGH RISK: >240 MG/DL >200 MG/DL CLASS. FOR PRIMARY LDL CHOL PREVENTION: LDL CHOL-CHILD/ADOLESCENTS* DESIRABLE: <130 MG/DL <110 MG/DL BORDERLINE-HIGH RISK: 130- 159 MG/DL 110-129 MG/DL HIGH RISK: >160 MG/DL >130 MG/DL *CHILDREN AND ADOLESCENTS REPRESENTS INDIVIDUALA AGED 2-19 YEARS EXCLUSIVE. TP 6.5 g/dL 6.6-8.7 Below low normal [facility] ( [facility] CHRONIC KIDNEY DISEASE STAGING PER NKF: MALE GFR INTERPRETATION: 20-49 YRS: >60 mL/min Normal 50-59 YRS: >56 mL/min Normal 60-69 YRS: >49 mL/min Normal 70-79 YRS: >42 mL/min Normal 80 and above >35 mL/min Normal FEMALE GRF INTERPRETATION: 20-39 YRS: >60 mL/min Normal 40-49 YRS: >58 mL/min Normal 50-59 YRS: >51 mL/min Normal 60-69 YRS: >45 mL/min Normal 70-79 YRS: >39 mL/min Normal 80 and above >32 mL/min NormalCLASSIFICATION CHOLESTEROL FOR ADULTS CHILDREN/ADOLESCENTS* DESIRABLE: <200 MG/DL <170 MG/DL BORDER-LINE HIGH RISK: 200-239 MG/DL 170-199 MG/DL HIGH RISK: >240 MG/DL >200 MG/DL CLASS. FOR PRIMARY LDL CHOL PREVENTION: LDL CHOL-CHILD/ADOLESCENTS* DESIRABLE: <130 MG/DL <110 MG/DL BORDERLINE-HIGH RISK: 130- 159 MG/DL 110-129 MG/DL HIGH RISK: >160 MG/DL >130 MG/DL *CHILDREN AND ADOLESCENTS REPRESENTS INDIVIDUALA AGED 2-19 YEARS EXCLUSIVE. Globulin 2.2 CALC [facility] ([facility] CHRONIC KIDNEY DISEASE STAGING PER NKF: MALE GFR INTERPRETATION: 20-49 YRS: >60 mL/min Normal 50-59 YRS: >56 mL/min Normal 60-69 YRS: >49 mL/min Normal 70-79 YRS: >42 mL/min Normal 80 and above >35 mL/min Normal FEMALE GRF INTERPRETATION: 20-39 YRS: >60 mL/min Normal 40-49 YRS: >58 mL/min Normal 50-59 YRS: >51 mL/min Normal 60-69 YRS: >45 mL/min Normal 70-79 YRS: >39 mL/min Normal 80 and above >32 mL/min NormalCLASSIFICATION CHOLESTEROL FOR ADULTS CHILDREN/ADOLESCENTS* DESIRABLE: <200 MG/DL <170 MG/DL BORDER-LINE HIGH RISK: 200-239 MG/DL 170-199 MG/DL HIGH RISK: >240 MG/DL >200 MG/DL CLASS. FOR PRIMARY LDL CHOL PREVENTION: LDL CHOL-CHILD/ADOLESCENTS* DESIRABLE: <130 MG/DL <110 MG/DL BORDERLINE-HIGH RISK: 130- 159 MG/DL 110-129 MG/DL HIGH RISK: >160 MG/DL >130 MG/DL *CHILDREN AND ADOLESCENTS REPRESENTS INDIVIDUALA AGED 2-19 YEARS EXCLUSIVE. Alp 71.6 U/L 40-129 [facility] ([facility] CHRONIC KIDNEY DISEASE STAGING PER NKF: MALE GFR INTERPRETATION: 20-49 YRS: >60 mL/min Normal 50-59 YRS: >56 mL/min Normal 60-69 YRS: >49 mL/min Normal 70-79 YRS: >42 mL/min Normal 80 and above >35 mL/min Normal FEMALE GRF INTERPRETATION: 20-39 YRS: >60 mL/min Normal 40-49 YRS: >58 mL/min Normal 50-59 YRS: >51 mL/min Normal 60-69 YRS: >45 mL/min Normal 70-79 YRS: >39 mL/min Normal 80 and above >32 mL/min NormalCLASSIFICATION CHOLESTEROL FOR ADULTS CHILDREN/ADOLESCENTS* DESIRABLE: <200 MG/DL <170 MG/DL BORDER-LINE HIGH RISK: 200-239 MG/DL 170-199 MG/DL HIGH RISK: >240 MG/DL >200 MG/DL CLASS. FOR PRIMARY LDL CHOL PREVENTION: LDL CHOL-CHILD/ADOLESCENTS* DESIRABLE: <130 MG/DL <110 MG/DL BORDERLINE-HIGH RISK: 130- 159 MG/DL 110-129 MG/DL HIGH RISK: >160 MG/DL >130 MG/DL *CHILDREN AND ADOLESCENTS REPRESENTS INDIVIDUALA AGED 2-19 YEARS EXCLUSIVE. A/G Ratio 2.0 CALC [facility] ([facility] CHRONIC KIDNEY DISEASE STAGING PER NKF: MALE GFR INTERPRETATION: 20-49 YRS: >60 mL/min Normal 50-59 YRS: >56 mL/min Normal 60-69 YRS: >49 mL/min Normal 70-79 YRS: >42 mL/min Normal 80 and above >35 mL/min Normal FEMALE GRF INTERPRETATION: 20-39 YRS: >60 mL/min Normal 40-49 YRS: >58 mL/min Normal 50-59 YRS: >51 mL/min Normal 60-69 YRS: >45 mL/min Normal 70-79 YRS: >39 mL/min Normal 80 and above >32 mL/min NormalCLASSIFICATION CHOLESTEROL FOR ADULTS CHILDREN/ADOLESCENTS* DESIRABLE: <200 MG/DL <170 MG/DL BORDER-LINE HIGH RISK: 200-239 MG/DL 170-199 MG/DL HIGH RISK: >240 MG/DL >200 MG/DL CLASS. FOR PRIMARY LDL CHOL PREVENTION: LDL CHOL-CHILD/ADOLESCENTS* DESIRABLE: <130 MG/DL <110 MG/DL BORDERLINE-HIGH RISK: 130- 159 MG/DL 110-129 MG/DL HIGH RISK: >160 MG/DL >130 MG/DL *CHILDREN AND ADOLESCENTS REPRESENTS INDIVIDUALA AGED 2-19 YEARS EXCLUSIVE. Ast (Sgot) 40 U/L 0-40 [facility] ([facility] CHRONIC KIDNEY DISEASE STAGING PER NKF: MALE GFR INTERPRETATION: 20-49 YRS: >60 mL/min Normal 50-59 YRS: >56 mL/min Normal 60-69 YRS: >49 mL/min Normal 70-79 YRS: >42 mL/min Normal 80 and above >35 mL/min Normal FEMALE GRF INTERPRETATION: 20-39 YRS: >60 mL/min Normal 40-49 YRS: >58 mL/min Normal 50-59 YRS: >51 mL/min Normal 60-69 YRS: >45 mL/min Normal 70-79 YRS: >39 mL/min Normal 80 and above >32 mL/min NormalCLASSIFICATION CHOLESTEROL FOR ADULTS CHILDREN/ADOLESCENTS* DESIRABLE: <200 MG/DL <170 MG/DL BORDER-LINE HIGH RISK: 200-239 MG/DL 170-199 MG/DL HIGH RISK: >240 MG/DL >200 MG/DL CLASS. FOR PRIMARY LDL CHOL PREVENTION: LDL CHOL-CHILD/ADOLESCENTS* DESIRABLE: <130 MG/DL <110 MG/DL BORDERLINE-HIGH RISK: 130- 159 MG/DL 110-129 MG/DL HIGH RISK: >160 MG/DL >130 MG/DL *CHILDREN AND ADOLESCENTS REPRESENTS INDIVIDUALA AGED 2-19 YEARS EXCLUSIVE. Osmolality-Calculated 279.2 CALC MED ENT ([facility] CHRONIC KIDNEY DISEASE STAGING PER NKF: MALE GFR INTERPRETATION: 20-49 YRS: >60 mL/min Normal 50-59 YRS: >56 mL/min Normal 60-69 YRS: >49 mL/min Normal 70-79 YRS: >42 mL/min Normal 80 and above >35 mL/min Normal FEMALE GRF INTERPRETATION: 20-39 YRS: >60 mL/min Normal 40-49 YRS: >58 mL/min Normal 50-59 YRS: >51 mL/min Normal 60-69 YRS: >45 mL/min Normal 70-79 YRS: >39 mL/min Normal 80 and above >32 mL/min NormalCLASSIFICATION CHOLESTEROL FOR ADULTS CHILDREN/ADOLESCENTS* DESIRABLE: <200 MG/DL <170 MG/DL BORDER-LINE HIGH RISK: 200-239 MG/DL 170-199 MG/DL HIGH RISK: >240 MG/DL >200 MG/DL CLASS. FOR PRIMARY LDL CHOL PREVENTION: LDL CHOL-CHILD/ADOLESCENTS* DESIRABLE: <130 MG/DL <110 MG/DL BORDERLINE-HIGH RISK: 130- 159 MG/DL 110-129 MG/DL HIGH RISK: >160 MG/DL >130 MG/DL *CHILDREN AND ADOLESCENTS REPRESENTS INDIVIDUALA AGED 2-19 YEARS EXCLUSIVE. Alt (SGPT) 46 U/L 0-41 Above high normal [facility] ([facility] CHRONIC KIDNEY DISEASE STAGING PER NKF: MALE GFR INTERPRETATION: 20-49 YRS: >60 mL/min Normal 50-59 YRS: >56 mL/min Normal 60-69 YRS: >49 mL/min Normal 70-79 YRS: >42 mL/min Normal 80 and above >35 mL/min Normal FEMALE GRF INTERPRETATION: 20-39 YRS: >60 mL/min Normal 40-49 YRS: >58 mL/min Normal 50-59 YRS: >51 mL/min Normal 60-69 YRS: >45 mL/min Normal 70-79 YRS: >39 mL/min Normal 80 and above >32 mL/min NormalCLASSIFICATION CHOLESTEROL FOR ADULTS CHILDREN/ADOLESCENTS* DESIRABLE: <200 MG/DL <170 MG/DL BORDER-LINE HIGH RISK: 200-239 MG/DL 170-199 MG/DL HIGH RISK: >240 MG/DL >200 MG/DL CLASS. FOR PRIMARY LDL CHOL PREVENTION: LDL CHOL-CHILD/ADOLESCENTS* DESIRABLE: <130 MG/DL <110 MG/DL BORDERLINE-HIGH RISK: 130- 159 MG/DL 110-129 MG/DL HIGH RISK: >160 MG/DL >130 MG/DL *CHILDREN AND ADOLESCENTS REPRESENTS INDIVIDUALA AGED 2-19 YEARS EXCLUSIVE. Tbili 1.12 mg/dL 0.0-1.2 [facility] ([facility] CHRONIC KIDNEY DISEASE STAGING PER NKF: MALE GFR INTERPRETATION: 20-49 YRS: >60 mL/min Normal 50-59 YRS: >56 mL/min Normal 60-69 YRS: >49 mL/min Normal 70-79 YRS: >42 mL/min Normal 80 and above >35 mL/min Normal FEMALE GRF INTERPRETATION: 20-39 YRS: >60 mL/min Normal 40-49 YRS: >58 mL/min Normal 50-59 YRS: >51 mL/min Normal 60-69 YRS: >45 mL/min Normal 70-79 YRS: >39 mL/min Normal 80 and above >32 mL/min NormalCLASSIFICATION CHOLESTEROL FOR ADULTS CHILDREN/ADOLESCENTS* DESIRABLE: <200 MG/DL <170 MG/DL BORDER-LINE HIGH RISK: 200-239 MG/DL 170-199 MG/DL HIGH RISK: >240 MG/DL >200 MG/DL CLASS. FOR PRIMARY LDL CHOL PREVENTION: LDL CHOL-CHILD/ADOLESCENTS* DESIRABLE: <130 MG/DL <110 MG/DL BORDERLINE-HIGH RISK: 130- 159 MG/DL 110-129 MG/DL HIGH RISK: >160 MG/DL >130 MG/DL *CHILDREN AND ADOLESCENTS REPRESENTS INDIVIDUALA AGED 2-19 YEARS EXCLUSIVE. Anion Gap 15 mmol/L [facility] CHRONIC KIDNEY DISEASE STAGING PER NKF: MALE GFR INTERPRETATION: 20-49 YRS: >60 mL/min Normal 50-59 YRS: >56 mL/min Normal 60-69 YRS: >49 mL/min Normal 70-79 YRS: >42 mL/min Normal 80 and above >35 mL/min Normal FEMALE GRF INTERPRETATION: 20-39 YRS: >60 mL/min Normal 40-49 YRS: >58 mL/min Normal 50-59 YRS: >51 mL/min Normal 60-69 YRS: >45 mL/min Normal 70-79 YRS: >39 mL/min Normal 80 and above >32 mL/min NormalCLASSIFICATION CHOLESTEROL FOR ADULTS CHILDREN/ADOLESCENTS* DESIRABLE: <200 MG/DL <170 MG/DL BORDER-LINE HIGH RISK: 200-239 MG/DL 170-199 MG/DL HIGH RISK: >240 MG/DL >200 MG/DL CLASS. FOR PRIMARY LDL CHOL PREVENTION: LDL CHOL-CHILD/ADOLESCENTS* DESIRABLE: <130 MG/DL <110 MG/DL BORDERLINE-HIGH RISK: 130- 159 MG/DL 110-129 MG/DL HIGH RISK: >160 MG/DL >130 MG/DL *CHILDREN AND ADOLESCENTS REPRESENTS INDIVIDUALA AGED 2-19 YEARS EXCLUSIVE. eGFR 113 # [facility] ( [facility] CHRONIC KIDNEY DISEASE STAGING PER NKF: MALE GFR INTERPRETATION: 20-49 YRS: >60 mL/min Normal 50-59 YRS: >56 mL/min Normal 60-69 YRS: >49 mL/min Normal 70-79 YRS: >42 mL/min Normal 80 and above >35 mL/min Normal FEMALE GRF INTERPRETATION: 20-39 YRS: >60 mL/min Normal 40-49 YRS: >58 mL/min Normal 50-59 YRS: >51 mL/min Normal 60-69 YRS: >45 mL/min Normal 70-79 YRS: >39 mL/min Normal 80 and above >32 mL/min NormalCLASSIFICATION CHOLESTEROL FOR ADULTS CHILDREN/ADOLESCENTS* DESIRABLE: <200 MG/DL <170 MG/DL BORDER-LINE HIGH RISK: 200-239 MG/DL 170-199 MG/DL HIGH RISK: >240 MG/DL >200 MG/DL CLASS. FOR PRIMARY LDL CHOL PREVENTION: LDL CHOL-CHILD/ADOLESCENTS* DESIRABLE: <130 MG/DL <110 MG/DL BORDERLINE-HIGH RISK: 130- 159 MG/DL 110-129 MG/DL HIGH RISK: >160 MG/DL >130 MG/DL *CHILDREN AND ADOLESCENTS REPRESENTS INDIVIDUALA AGED 2-19 YEARS EXCLUSIVE. eGFR Non-Afr. Barbadian 97 # MEDENT ([facility] CHRONIC KIDNEY DISEASE STAGING PER NKF: MALE GFR INTERPRETATION: 20-49 YRS: >60 mL/min Normal 50-59 YRS: >56 mL/min Normal 60-69 YRS: >49 mL/min Normal 70-79 YRS: >42 mL/min Normal 80 and above >35 mL/min Normal FEMALE GRF INTERPRETATION: 20-39 YRS: >60 mL/min Normal 40-49 YRS: >58 mL/min Normal 50-59 YRS: >51 mL/min Normal 60-69 YRS: >45 mL/min Normal 70-79 YRS: >39 mL/min Normal 80 and above >32 mL/min NormalCLASSIFICATION CHOLESTEROL FOR ADULTS CHILDREN/ADOLESCENTS* DESIRABLE: <200 MG/DL <170 MG/DL BORDER-LINE HIGH RISK: 200-239 MG/DL 170-199 MG/DL HIGH RISK: >240 MG/DL >200 MG/DL CLASS. FOR PRIMARY LDL CHOL PREVENTION: LDL CHOL-CHILD/ADOLESCENTS* DESIRABLE: <130 MG/DL <110 MG/DL BORDERLINE-HIGH RISK: 130- 159 MG/DL 110-129 MG/DL HIGH RISK: >160 MG/DL >130 MG/DL *CHILDREN AND ADOLESCENTS REPRESENTS INDIVIDUALA AGED 2-19 YEARS EXCLUSIVE. ID Date Data Source [id number] 01/03/2020 12:00:00 AM EDT [facility] ([facility]) Name Value Range Interpretation Code Description Data Latisha rce(s) Supporting Document(s) ID Date Data Source [id number] 01/03/2020 12:00:00 AM EDT [facility] Name Value Range Interpretation Code Description Data Latisha rce(s) Supporting Document(s) SARS-CoV-2 [facility] This lab was ordered by [facility] and reported by [employer]. ID Date Data Source [id number] 12/06/2019 12:00:00 AM EDT [facility] ([facility]) Name Value Range Interpretation Code Description Data Latisha rce(s) Supporting Document(s) ID Date Data Source [id number] 12/06/2019 12:00:00 AM EDT [facility] ([facility]) Name Value Range Interpretation Code Description Data Latisha rce(s) Supporting Document(s) ID Date Data Source [id number] 12/06/2019 12:00:00 AM EDT [facility] ([facility]) Name Value Range Interpretation Code Description Data Latisha rce(s) Supporting Document(s) ID Date Data Source [id number] 12/06/2019 12:00:00 AM EDT [facility] ([facility]) Name Value Range Interpretation Code Description Data Latisha rce(s) Supporting Document(s) ID Date Data Source [id number] 12/06/2019 12:00:00 AM EDT [facility] ([facility]) Name Value Range Interpretation Code Description Data Latisha rce(s) Supporting Document(s) ID Date Data Source [id number] 12/06/2019 12:00:00 AM EDT [facility] Name Value Range Interpretation Code Description Data Latisha rce(s) Supporting Document(s) SARS-CoV-2 [facility] This lab was ordered by [facility] and reported by [employer]. ID Date Data Source [id number] 11/05/2019 01:40:54 PM EDT [facility] PCName: Diandra Claros: [id number]: Raphael, Julianna: 11/05/2019 Reason For VisitVerbal consent obtained from the patient for telemedicine visit. This assessment was done using telemedicine as a result of social distancing due to the outbreak of COVID-19. 15 minutes for review of chart, virtual visit itself, and documentation. History of Present IllnessFor the last 6 weeks he has struggled with abrupt onset and relatively severe right lumbar radiculopathy in an S1 root distribution. He has been trying to manage this with self directed exercises, Sae exercises, medication including prednisone and gabapentin. He says if it was not for the medications he don't think that he could function as well as he is. Results/DataHe is a lean fit healthy man walking independently with a limp favoring that right leg. Alert oriented and cooperative with exam. Complaining of significant pain and radiating numbness to the level of his foot and some to the dorsum of his foot he has no symptoms above his knee. Results/Data OtherI shared with him the lumbar MRI scan which was performed recently in our office. I showed him the degenerative changes seen at L3-4 and L4-5 and the extruded disc fragment on the right at L5-S1 which is likely the source of his pain. Assessment 1. Herniated nucleus pulposus, L5-S1, right (722.10) (M51.27) PlanWe have discussed treatment options ranging from ongoing conservative management such as switching to anti-inflammatory medication and physical therapy and self-directed exercises. We have also discussed referral to a supervisor painting department near his home [place] in [place]. Injections on the right at L5-S1 have the potential to help.We have also discussed surgery, a right L5-S1 lumbar microdiscectomy.We discussed today in the office the nature of the procedure, the perioperative hospital course, the postoperative recovery time, the material risks of surgery, the possible benefits and the treatment alternatives including both surgical and nonsurgical. The patient was given Internet based instructional material about this operation. Any questions were answered.He would like to proceed with physical therapy and injections we will help him set that up Work / School NoteThe incident described by the patient is a competent medical cause of this injury. The patient's complaints are consistent with the history of the inju ry/illness. The patient's history of the injury/illness is consistent with my objective findings. The percentage of temporary impairment is 67%. The patient is working at this time. No lifting greater than 20 lbs. No repetitive bending, twisting. Sit, stand, walk as tolerated. No use of heavy machinery or equipment. Driving allowed only if not on medications that cause drowsiness. Signatures Electronically signed by : Kathy Lim M.D.; Nov 05 2019 1:40PM EST (Author) Name Value Range Interpretation Code Description Data Latisha rce(s) Supporting Document(s) ID Date Data Source [id number] 11/01/2019 04:16:00 PM EDT [facility] PATIENT MR#: [id number] NAME: DIANDRA DE LEON SDATE OF : 1965REFERRING PHYSICIAN: Kathy Ricci DATE: 11/01/2019MRI: Lumbosacral Spine.INDICATION: 2 months of lower back pain with right leg pain, numbness, andtingling. Acute right lumbar radiculopathy.COMPARISON: Lumbar spine radiographs 10/23/2019TECHNIQUE: MRI scan was performed using various scan planes and pulse sequences.FINDINGS: Correlating with prior radiographs, there is transitional lumbosacral anatomy. For the purpose of numbering nomenclature in this report, the L1 vertebral bodyappears to have small ribs. The S1 vertebral body demonstrates mild partiallumbarization. There is straightening of the normal lumbar lordosis. Nosagittal spondylolisthesis. Vertebral body heights are maintained. Severeright L4-L5, moderate anterior left L3-L4, mild posterior L5-S1, and minimalposterior L2-L3 disc space narrowing. Decreased disc hydration from L2-X1mfzqlat L5-S1. Mild posterior left L5-S1, mild diffuse right L4-L5, and mildanterior L3-L4 edematous marrow endplate degenerative changes. Moderate rightL4-L5 and mild anterior L3-L4 facet intense endplate marrow degenerativechanges. Small mid L2 vertebral body FAT intensity hemangioma. No acutefracture or destructive bone lesion. The conus terminates at the T12-L1 level.T12-L1: Unremarkable.L1-L2: No posterior disc bulge, central canal narrowing, or neural foraminalstenosis.L2-L3: Moderate spinal facet joint hypertrophy. Mild broad-based posterior discossified complex with moderate left and mild right foraminal extension. Mild tomoderate central canal pepe nosis. Mild left greater than right neural foraminalstenosis.L3-L4: Moderate spinal facet joint hypertrophy. Mild broad-based posterior discosteophyte complex with moderate left and mild right intraforaminal extension. Mild left neural foraminal stenosis with disc contacting the far left extraforaminal L3 nerve. No significant right neural foraminal stenosis. Mild tomoderate central canal stenosis.L4-L5: Moderate bilateral facet joint hypertrophy. Mild broad- based posteriordisc osteophyte complex with moderate right intraforaminal extension. Moderateright neural foraminal stenosis with the disc osteophyte complex contacting thefar right extraforaminal L4 nerve. No significant left neural foraminalstenosis. Moderate right and mild left lateral recess narrowing. Mild centralcanal stenosis.L5-S1: Moderate bilateral facet joint hypertrophy. Mild to moderate broad-basedposterior disc osteophyte complex with superimposed right paracentral posteriordisc protrusion that measures up to 8 mm in AP dimension and 17 mm in transversedimension and impinges on the descending right S1 nerve, pressing it against theright facet joint. There is mild lobularity of the posterior aspect of thedisc, and the posterior aspect of the disc protrusion may involve and at leastpartially /extruded flap of disc material (sagittal image 7/16, axialimage 40/45). This disc also mildly contacts the descending right S2 nervewithin the right lateral recess with mild posterior displacement on that nerve. The disc also mildly impresses on the descending left S1 nerve within the leftlateral recess. Severe right greater than left lateral recess stenosis. Overall mild right greater than left central canal stenosis. Mild leftintraforaminal disc extension and mild left neural foraminal stenosis.Limited images of the retroperitoneum are unremarkable.IMPRESSION:1. There is transitional lumbosacral anatomy. Recommend correlation with thenumbering nomenclature in this report prior to any image guided invasiveprocedure. By the numbering in this report, the L1 vertebral body has smallribs.2. At L5-S1 there is a broad-based posterior discussed it complex withsuperimposed right posterior disc protrusion that impinges on the descendingright S1 nerve greater than the descending left S1 nerve and descending right [id number]. Mild left neural foraminal stenosis.3. L4-L5 moderate right neural femoral stenosis with disc ossified complexcontacting the far right extraforaminal L4 nerve. Mild central canal stenosis.4. L3-L4 mild left neural femoral stenosis with disc contacting the far leftextraforaminal L3 nerve. Mild to moderate central canal stenosis.5. Additional findings as above. Read by: Joe Polanco by: Joe Polanco Date: 11/01/2019 4:16:00 PMElectronically signed by: Joe Fink signed: 11/01/2019 4:17:09 PM Name Value Range Interpretation Code Description Data Latisha rce(s) Supporting Document(s) ID Date Data Source [id number] 10/30/2019 02:26:47 PM EDT [facility]: 1965Provider: Julianna Lim: 10/30/2019 History of Present IllnessHe is a healthy active 54-year-old man who presents today for his back. He has a two-month history of severe lumbar radiculopathy in the right leg. Initially managed with career law clerk and self-directed Sae exercises followed then with his primary care who gave him a steroid injection oral prednisone baclofen and then gabapentin. Despite these appropriate initial treatments he is continuing to struggle with severe right lumbar radiculopathy and is looking for other options. His Madeline is a former patient of mine and so he came to see me. Results/DataPrevious x-rays lumbar spine October 23, 2019 are reviewed multiple images. Advanced lumbar multilevel degenerative disc disease most notable at the L4-5 level where there is disc space collapse and right-sided neural foraminal narrowing Assessment 1. Acute right lumbar radiculopathy (724.4) (M54.16) PlanHe needs a lumbar MRI and I will see him back with the results Work / School NoteThe percentage of temporary impairment is 0%. The patient is working at this time. Signatures Electronically signed by : Kathy Lim M.D.; Oct 30 2019 2:26PM EST (Author) Name Value Range Interpretation Code Description Data Latisha rce(s) Supporting Document(s) ID Date Data Source [id number] 10/23/2019 12:00:00 AM EDT [facility] Patient Name: DIANDRA RODRIGUEZ [id number] Date of : 1965[place] [address] Date of Exam: 10/23/2019#: Fax: [phone] EXAM: LUMBOSACRAL SPINE (4 VIEWS)CLINICAL INFORMATION: Low back pain.Five views.There are no prior lumbar spine xrays for comparison.There is universal disc space narrowing L3-4 and L4-5 with anterior lippingseen at all levels. Posterior disc space narrowing is seen at all otherlevels. Degenerative facet joint changes are present at every levelbilaterally, particularly L4-5 and L5-S1. Vertebral body height is withinnormal limits. The lumbar lordotic curve has been straightened. There ispartial syndesmophyte formation seen bilaterally at multiple levels butparticularly on the left at L3- 4 and on the right at L4-5. The pediclesappear to be intact bilaterally.IMPRESSION:Chronic changes as described above.WING Pedersen/Marin you for referring DIANDRA RODRIGUEZ to our office. Electronically Signed - VIOLA ALEX DO 10/23/19 17:17 Name Value Range Interpretation Code Description Data Latisha rce(s) Supporting Document(s) Procedure Vital Signs ID Date Data Source UNK Name Value Range Interpretation Code Description Data Source(s) Oxygen saturation in Arterial blood by Pulse oximetry 95 % 95 % MEDENT ([facility] Body mass index (BMI) [Ratio] 26.5 kg/m2 26.5 k g/m2 MEDENT ([facility] Body weight 190.00 [lb_av] 190.00 [lb_av] MEDEN T ([facility] Body height 71 [in_i] 71 [in_i] MEDENT ([facility] 5'11" Respiratory rate 16 /min 16 /min MEDENT ( [facility] Heart rate 60 /min 60 /min MEDENT ([facility] Body temperature 99.0 [degF] 99.0 [degF] MEDENT ([facility] Diastolic blood pressure 84 mm[Hg] 84 mm[Hg] MEDENT ([facility] Systolic blood pressure 120 mm[Hg] 120 mm[Hg] M EDENT ([facility] Body weight 189 [lb_av] 189 [lb_av] HELDER ([facility]) Systolic blood pressure 113 mm[Hg] 113 mm[Hg] A THENA ([facility]) Body mass index (BMI) [Ratio] 26.4 kg/m2 26.4 k g/m2 HELDER ([facility]) Body height 71 [in_i] 71 [in_i] HEL[facility] ([facility]) Diastolic blood pressure 67 mm[Hg] 67 mm[Hg] HELDER ([facility]) Body weight 189 [lb_av] 189 [lb_av] HEL[facility] ([facility]) Systolic blood pressure 113 mm[Hg] 113 mm[Hg] A THENA ([facility]) Body mass index (BMI) [Ratio] 26.4 kg/m2 26.4 k g/m2 HEL[facility] ([facility]) Body height 71 [in_i] 71 [in_i] HELDER ([facility]) Diastolic blood pressure 67 mm[Hg] 67 mm[Hg] HELDER ([facility]) Body weight 189 [lb_av] 189 [lb_av] HELDER ([facility]) Systolic blood pressure 113 mm[Hg] 113 mm[Hg] A THENA ([facility]) Body mass index (BMI) [Ratio] 26.4 kg/m2 26.4 k g/m2 HELDER ([facility]) Body height 71 [in_i] 71 [in_i] HELDER ([facility]) Diastolic blood pressure 67 mm[Hg] 67 mm[Hg] HELDER ([facility]) Body weight 189 [lb_av] 189 [lb_av] HELDER ([facility]) Systolic blood pressure 113 mm[Hg] 113 mm[Hg] A THENA ([facility]) Body mass index (BMI) [Ratio] 26.4 kg/m2 26.4 k g/m2 HELDER ([facility]) Body height 71 [in_i] 71 [in_i] HELDER ([facility]) Diastolic blood pressure 67 mm[Hg] 67 mm[Hg] HELDER ([facility]) Body weight 189 [lb_av] 189 [lb_av] HELDER ([facility]) Systolic blood pressure 113 mm[Hg] 113 mm[Hg] A THENA ([facility]) Body mass index (BMI) [Ratio] 26.4 kg/m2 26.4 k g/m2 HELDER ([facility]) Body height 71 [in_i] 71 [in_i] HELDER ([facility]) Diastolic blood pressure 67 mm[Hg] 67 mm[Hg] HELDER ([facility]) Body weight 189 [lb_av] 189 [lb_av] HELDER ([facility]) Systolic blood pressure 113 mm[Hg] 113 mm[Hg] A THENA ([facility]) Body mass index (BMI) [Ratio] 26.4 kg/m2 26.4 k g/m2 HELDER ([facility]) Body height 71 [in_i] 71 [in_i] HELDER ([facility]) Diastolic blood pressure 67 mm[Hg] 67 mm[Hg] HELDER ([facility]) Body weight 189 [lb_av] 189 [lb_av] HELDER ([facility]) Systolic blood pressure 113 mm[Hg] 113 mm[Hg] A THENA ([facility]) Body mass index (BMI) [Ratio] 26.4 kg/m2 26.4 k g/m2 HELDER ([facility]) Body height 71 [in_i] 71 [in_i] HELDER ([facility]) Diastolic blood pressure 67 mm[Hg] 67 mm[Hg] HELDER ([facility]) Oxygen saturation in Arterial blood by Pulse oximetry 98 % 98 % [facility] ([facility] Body mass index (BMI) [Ratio] 25.8 kg/m2 25.8 k g/m2 MED[facility] ([facility] Body weight 185.00 [lb_av] 185.00 [lb_av] MEDEN T ([facility] Body height 71 [in_i] 71 [in_i] MED[facility] ([facility] 5'11" Respiratory rate 16 /min 16 /min MED[facility] ( [facility] Heart rate 88 /min 88 /min MED[facility] ([facility] Body temperature 98.0 [degF] 98.0 [degF] MEDENT ([facility] Diastolic blood pressure 90 mm[Hg] 90 mm[Hg] MED[facility] ([facility] Systolic blood pressure 130 mm[Hg] 130 mm[Hg] M EDENT ([facility] Oxygen saturation in Arterial blood by Pulse oximetry 98 % 98 % MEDENT ([facility] Body mass index (BMI) [Ratio] 25.9 kg/m2 25.9 k g/m2 MED[facility] ([facility] Body weight 186.00 [lb_av] 186.00 [lb_av] MEDEN T ([facility] Body height 71 [in_i] 71 [in_i] MEDENT ([facility] 5'11" Respiratory rate 16 /min 16 /min MEDENT ( [facility] Heart rate 87 /min 87 /min MEDENT ([facility] Body temperature 97.8 [degF] 97.8 [degF] MEDENT ([facility] Diastolic blood pressure 94 mm[Hg] 94 mm[Hg] MEDENT ([facility] Systolic blood pressure 142 mm[Hg] 142 mm[Hg] M EDENT ([facility] Patient Treatment Plan of Care Planned Activity Planned Date Details Description Data Source (s) Prednisone 20 MG Oral Tablet HEL[facility] ([facility]) Prednisone 10 MG Oral Tablet HEL[facility] ([facility]) gabapentin 100 MG Oral Capsule HEL[facility] ([facility]) ciclopirox 0.0077 MG/MG Topical Gel HELDER ([facility]) Baclofen 10 MG Oral Tablet A THENA ([facility]) Afluria Quad 60 mcg (15 mcg x 4)/0.5 mL intramuscular wai p. HELDER ([facility]) Prednisone 20 MG Oral Tablet HELDER ([facility]) Prednisone 10 MG Oral Tablet HELDER ([facility]) gabapentin 100 MG Oral Capsule HELDER ([facility]) ciclopirox 0.0077 MG/MG Topical Gel HELDER ([facility]) Baclofen 10 MG Oral Tablet A THENA ([facility]) Afluria Quad 60 mcg (15 mcg x 4)/0.5 mL intramuscular wai p. HELDER ([facility]) Prednisone 20 MG Oral Tablet HELDER ([facility]) Prednisone 10 MG Oral Tablet HELDER ([facility]) gabapentin 100 MG Oral Capsule HELDER ([facility]) ciclopirox 0.0077 MG/MG Topical Gel HELDER ([facility]) Baclofen 10 MG Oral Tablet A THENA ([facility]) Afluria Quad 60 mcg (15 mcg x 4)/0.5 mL intramuscular wai p. HELDER ([facility]) Prednisone 20 MG Oral Tablet HELDER ([facility]) Prednisone 10 MG Oral Tablet HELDER ([facility]) gabapentin 100 MG Oral Capsule HELDER ([facility]) ciclopirox 0.0077 MG/MG Topical Gel HELDER ([facility]) Baclofen 10 MG Oral Tablet A THENA ([facility]) Afluria Quad 60 mcg (15 mcg x 4)/0.5 mL intramuscular wai p. HELDER ([facility]) Prednisone 20 MG Oral Tablet HELDER ([facility]) Prednisone 10 MG Oral Tablet HELDER ([facility]) gabapentin 100 MG Oral Capsule HELDER ([facility]) ciclopirox 0.0077 MG/MG Topical Gel HELDER ([facility]) Baclofen 10 MG Oral Tablet A THENA ([facility]) Afluria Quad 60 mcg (15 mcg x 4)/0.5 mL intramuscular wai p. HELDER ([facility]) Prednisone 20 MG Oral Tablet HELDER ([facility]) Prednisone 10 MG Oral Tablet HELDER ([facility]) gabapentin 100 MG Oral Capsule HELDER ([facility]) ciclopirox 0.0077 MG/MG Topical Gel HELDER ([facility]) Baclofen 10 MG Oral Tablet A THENA ([facility]) Afluria Quad 60 mcg (15 mcg x 4)/0.5 mL intramuscular wai p. HELDER ([facility]) Prednisone 20 MG Oral Tablet HELDER ([facility]) Prednisone 10 MG Oral Tablet HELDER ([facility]) gabapentin 100 MG Oral Capsule HELDER ([facility]) ciclopirox 0.0077 MG/MG Topical Gel HELDER ([facility]) Baclofen 10 MG Oral Tablet A THENA ([facility]) Afluria Quad 60 mcg (15 mcg x 4)/0.5 mL intramuscular wai p. HELDER ([facility])
[2020-07-24] MEDS ORDERED: NORCO, ANEXSIA 5/325MG TABLET (HYDROcodone/ACETAMINOPHEN) PO ONE (23:30)
[2020-07-25] MEDS ORDERED: LIDOCAINE 1% MDV 20ML VIAL IM ONE
[2020-07-25] MEDS ORDERED: BUPIVACAINE HCL 0.25% 10ML VIAL IM ONE
[2020-07-25 02:11] VITALS: BP 142/83
[2020-07-25] MEDS ORDERED: NORCO 5/325MG TABLET (BULK FOR ED) PO ONE (02:15)
--- NOTE | 2020-07-25 02:45 | REPVR ---
PROCEDURE INFORMATION: Exam: XR Left Wrist Exam date and time: 07/25/2020 2:09 AM Age: 55 years old Clinical indication: Injury or trauma; Other: Post reduction; Sprain or strain; Wrist; Left; Additional info: Fall onto left wrist TECHNIQUE: Imaging protocol: XR Left wrist. Views: 1 or 2 views. COMPARISON: 1. CR Wrist, complete LEFT 07/24/2020 8:46 PM 2. <startdictation> FINDINGS: Casts, splints, and braces: Status post cast. Bones/joints: Evaluation of fine bone detail is limited by overlying cast. Acute intra-articular fracture of the distal radius. Fracture involves the diaphysis. Mild dorsal radial tilt. Acute nondisplaced fracture of the ulnar styloid. No dislocation. Soft tissues: Soft tissue is limited by overlying cast. IMPRESSION: 1. Acute intra-articular fracture of the distal radius. Dorsal displacement is mildly reduced from prior. 2. Acute nondisplaced fracture of the ulnar styloid. Electronically signed by: Vasquez Schulz On 07/25/2020 02:45:10 AM
--- NOTE | 2020-07-25 02:58 | REPVR ---
PROCEDURE INFORMATION: Exam: XR Left Forearm Exam date and time: 07/25/2020 2:09 AM Age: 55 years old Clinical indication: Injury or trauma; Other: Post reduction; Sprain or strain; Wrist; Left; Additional info: Fall onto left wrist TECHNIQUE: Imaging protocol: XR Left forearm. Views: 2 views. COMPARISON: No relevant prior studies available. FINDINGS: Casts, splints, and braces: Status post cast. Bones/joints: Evaluation of fine bone detail is limited by overlying cast. Acute intra-articular fracture of the distal radius. Acute nondisplaced fracture of the ulnar styloid. No dislocation. Soft tissues: Soft tissue is limited by overlying cast. IMPRESSION: 1. Acute intra-articular fracture of the distal radius. 2. Acute nondisplaced fracture of the ulnar styloid. 3. See also XR wrist report. Electronically signed by: Vasquez Schulz On 07/25/2020 02:58:06 AM
--- NOTE | 2020-07-25 05:03 | REP ---
INDICATION: colles fx reduction. COMPARISON: 07/24/2020 TECHNIQUE: Intraoperative fluoroscopic imaging using portable C-arm technique. FINDINGS: Patient is status post closed reduction for Colles fracture of the distal radius. Total fluoroscopic time 94 seconds. IMPRESSION: Satisfactory reduction for Colles' fracture of the distal radius. <Electronically signed by Mir Law > 07/25/20 0450
--- NOTE | 2020-07-25 07:18 | ED PDOC ---
Post-Departure Follow-Up radiology report faxed to Josefina Cassidy MD Jul 25, 2020 07:18
== END 2020-07-25 02:27 | disposition home or self-care (01) ==
LOC: M ED 20:31
DX: S52.532A Colles' fracture of left radius, initial encounter for closed fracture (principal); S20.212A Contusion of left front wall of thorax, initial encounter; W00.9XXA Unspecified fall due to ice and snow, initial encounter; Y92.9 Unspecified place or not applicable; Y93.23 Activity, snow (alpine) (downhill) skiing, snowboarding, sledding, tobogganing and snow tubing; Y99.9 Unspecified external cause status

== ENCOUNTER → 2022-08-25 | Outpatient (CLI) | payer OTHER ==
[~2022-08-25] MED LIST: RA N1TAB PO; ZYRT10TA12 PO
== END ==
LOC: M LABSMTC 09:17
PROVIDERS: ATTEND Anesthesiology
DX: Z01.812 Encounter for preprocedural laboratory examination (principal)

== ENCOUNTER 2022-08-30 13:26 | Day surgery (SDC) | payer OTHER ==
[~2022-08-30] VITALS: Ht 180.3 cm; Wt 86.6 kg
[~2022-08-30 13:26] MED LIST changes: +NS 1,000 ML IV ONE
[2022-08-30] MEDS ORDERED: LIDOCAINE 2% 100MG/5ML SDV (FOR ANES.) As Ordered ONE (13:56)
[2022-08-30] MEDS ORDERED: propofoL 200 MG/20 ML VIAL As Ordered ONE (13:56)
[2022-08-30 15:49] VITALS: BP 153/97
== END 2022-08-30 16:03 | disposition home or self-care (01) ==
LOC: M OPP 13:26
PROVIDERS: ATTEND Internal Medicine Gastroenterology
DX: K21.00 Gastro-esophageal reflux disease with esophagitis, without bleeding (principal); K44.9 Diaphragmatic hernia without obstruction or gangrene; K29.70 Gastritis, unspecified, without bleeding; I45.10 Unspecified right bundle-branch block; Z79.899 Other long term (current) drug therapy; Z80.6 Family history of leukemia; Z80.3 Family history of malignant neoplasm of breast

== ENCOUNTER 2023-01-02 09:48 | Day surgery (SDC) | payer OTHER ==
[~2023-01-02] VITALS: Ht 180.3 cm; Wt 88.1 kg
[~2023-01-02 09:48] MED LIST changes: +PANT40TA29 PO
[2023-01-02] MEDS ORDERED: LIDOCAINE 2% 100MG/5ML SDV (FOR ANES.) As Ordered ONE (09:51)
[2023-01-02] MEDS ORDERED: propofoL 200 MG/20 ML VIAL As Ordered ONE ×2 (09:51→10:35)
[2023-01-02] MEDS ORDERED: fentaNYL 100 MCG/2 ML INJECTION As Ordered ONE (09:52)
[2023-01-02 10:42] VITALS: TEMP 98.2
[2023-01-02 11:08] VITALS: BP 112/67; O2SAT 98
== END 2023-01-02 11:27 | disposition home or self-care (01) ==
LOC: M OPP 09:48
PROVIDERS: ATTEND Internal Medicine Gastroenterology
DX: K21.00 Gastro-esophageal reflux disease with esophagitis, without bleeding (principal); K22.89 Other specified disease of esophagus; K22.70 Barrett's esophagus without dysplasia; K29.70 Gastritis, unspecified, without bleeding; Z79.811 Long term (current) use of aromatase inhibitors
CPT/HCPCS: 43239; 88305; J3010